=== PATIENT | female | born 1975 | race Caucasian/White ===

== ENCOUNTER → 2016-11-18 | Outpatient (REF) | payer OTHER, MEDICAID ==
[~2016-11-18] MED LIST: /AMLO25TA NG; ASPI81TA4 PO; BIRTH CONTROL PO; BYST5TAB PO; DEBR6.5S AD; LISI40TAB PO; Norvasc OR
== END ==
LOC: M SFHCLERA 10:08
PROVIDERS: ATTEND Nurse Practitioner Family
DX: J02.9 Acute pharyngitis, unspecified (principal)

== ENCOUNTER → 2016-12-25 | Outpatient (CLI) | payer OTHER ==
--- NOTE | 2016-12-26 12:40 | ECGEPIP ---
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 Electronically Signed On 12-26-2016 12:40:07 EDT by Deniz Deras
== END ==
LOC: M EKG 11:05 → M LAB 11:05
PROVIDERS: ATTEND Orthopaedic Surgery
DX: Z01.818 Encounter for other preprocedural examination (principal); I10 Essential (primary) hypertension; R94.31 Abnormal electrocardiogram [ECG] [EKG]

== ENCOUNTER → 2017-01-15 | Outpatient (REF) | payer OTHER, MEDICAID ==
[2017-01-15 11:48] LABS: MEAN CORPUSCULAR HEMOGLOBIN 33.3 pg (27.0-33.0); MEAN CORPUSCULAR HGB CONC 35.5 g/dl (32.0-36.5); MEAN CORPUSCULAR VOLUME 93.7 fl (80.0-96.0); RED CELL DISTRIBUTION WIDTH 12.2 % (11.5-14.5); WHITE BLOOD COUNT 5.9 K/mm3 (4.0-10.0)
[2017-01-15 12:34] LABS: ALBUMIN 3.8 GM/DL (3.2-5.2); ALBUMIN/GLOBULIN RATIO 1.06 (1.00-1.93); ALKALINE PHOSPHATASE 66 U/L (45-117); ALT/SGPT 18 U/L (12-78); ANION GAP 8 MEQ/L (8-16); AST/SGOT 12 U/L (15-37); BILIRUBIN,TOTAL 0.3 MG/DL (0.2-1.0); BLOOD UREA NITROGEN 20 MG/DL (7-18); CALCIUM LEVEL 8.5 MG/DL (8.5-10.1); CARBON DIOXIDE LEVEL 26 MEQ/L (21-32); CHLORIDE LEVEL 103 MEQ/L (98-107); CREATININE FOR GFR 0.69 MG/DL (0.55-1.02); GLOMERULAR FILTRATION RATE > 60.0 (>58); GLUCOSE, FASTING 109 MG/DL (70-105); POTASSIUM SERUM 4.6 MEQ/L (3.5-5.1); SODIUM LEVEL 137 MEQ/L (136-145); TOTAL PROTEIN 7.4 GM/DL (6.4-8.2)
== END ==
LOC: M SFHCLERA 09:10
PROVIDERS: ATTEND Physician Assistant
DX: I10 Essential (primary) hypertension (principal)

== ENCOUNTER → 2017-02-14 | Outpatient (REF) | payer OTHER, MEDICAID | LOC: M SFHCLERA 13:13 | PROVIDERS: ATTEND Family Medicine | DX: Z12.4 Encounter for screening for malignant neoplasm of cervix (principal) ==

== ENCOUNTER → 2018-02-12 | Outpatient (REF) | payer OTHER, MEDICAID ==
[2018-02-12 17:38] LABS: ALBUMIN 3.9 GM/DL (3.2-5.2); ALBUMIN/GLOBULIN RATIO 1.08 (1.00-1.93); ALKALINE PHOSPHATASE 69 U/L (45-117); ALT/SGPT 21 U/L (12-78); ANION GAP 6 MEQ/L (8-16); AST/SGOT 19 U/L (7-37); BILIRUBIN,TOTAL 0.4 MG/DL (0.2-1.0); BLOOD UREA NITROGEN 20 MG/DL (7-18); CALCIUM LEVEL 8.9 MG/DL (8.5-10.1); CARBON DIOXIDE LEVEL 26 MEQ/L (21-32); CHLORIDE LEVEL 108 MEQ/L (98-107); CHOLESTEROL LEVEL 161 MG/DL (<200); CHOLESTEROL RISK RATIO 4.472 (<5); CREATININE FOR GFR 0.79 MG/DL (0.55-1.30); GLOMERULAR FILTRATION RATE > 60.0 (>58); GLUCOSE, FASTING 103 MG/DL (70-100); HDL CHOLESTEROL 36 MG/DL (>40); LDL CHOLESTEROL 76.4 MG/DL (<100); NON-HDL-C 125 MG/DL; POTASSIUM SERUM 4.4 MEQ/L (3.5-5.1); SODIUM LEVEL 140 MEQ/L (136-145); TOTAL PROTEIN 7.5 GM/DL (6.4-8.2); TRIGLYCERIDES LEVEL 243 MG/DL (<150)
[2018-02-12 17:52] LABS: HEMATOCRIT 43.9 % (36.0-47.0); HEMOGLOBIN 15.1 g/dl (12.0-15.5); MEAN CORPUSCULAR HEMOGLOBIN 32.8 pg (27.0-33.0); MEAN CORPUSCULAR HGB CONC 34.4 g/dl (32.0-36.5); MEAN CORPUSCULAR VOLUME 95.2 fl (80.0-96.0); PLATELET COUNT, AUTOMATED 261 10^3/uL (150-450); RED BLOOD COUNT 4.61 10^6/uL (4.00-5.40); RED CELL DISTRIBUTION WIDTH 11.7 % (11.5-14.5); WHITE BLOOD COUNT 6.1 10^3/uL (4.0-10.0)
== END ==
LOC: M SFHCLERA 11:13
DX: E78.2 Mixed hyperlipidemia (principal); I10 Essential (primary) hypertension
CPT/HCPCS: 80053

== ENCOUNTER 2018-05-16 21:58 | Emergency (ER) | payer OTHER, MEDICAID ==
[2018-05-16] MEDS: ONDANSETRON 4MG/2ML VIAL (J2405) IV (22:36)
[2018-05-16] MEDS: NS 1,000 ML IV (22:37)
[2018-05-16] MEDS: MORPHINE 4 MG/ML 1ML VIAL/SYRINGE (J2270) IV (22:37)
[2018-05-16 22:51] LABS: BASO % 0.2 % (0.0-1.0); EOS % 0.3 % (0.0-3.0); HEMATOCRIT 42.8 % (36.0-47.0); HEMOGLOBIN 14.9 g/dl (12.0-15.5); IMMATURE GRANULOCYTE % 0.3 % (0-3.0); LYMPH # 1.7 10^3/uL (1.5-4.5); LYMPH % 13.8 % (24.0-44.0); MEAN CORPUSCULAR HEMOGLOBIN 32.9 pg (27.0-33.0); MEAN CORPUSCULAR HGB CONC 34.8 g/dl (32.0-36.5); MEAN CORPUSCULAR VOLUME 94.5 fl (80.0-96.0); MONO # 0.4 10^3/uL (0.0-0.8); MONO % 3.6 % (0.0-5.0); NEUTROPHILS # 9.8 10^3/uL (1.8-7.7); NEUTROPHILS % 81.8 % (36.0-66.0); PLATELET COUNT, AUTOMATED 281 10^3/uL (150-450); RED BLOOD COUNT 4.53 10^6/uL (4.00-5.40); RED CELL DISTRIBUTION WIDTH 12.1 % (11.5-14.5)
[2018-05-16 23:02] LABS: CONTROL LINE HCG INT CTR LINE PRESENT; HCG, SERUM QUALITATIVE NEGATIVE (NEGATIVE)
[2018-05-16 23:09] LABS: ALBUMIN 3.8 GM/DL (3.2-5.2); ALBUMIN/GLOBULIN RATIO 0.79 (1.00-1.93); ALKALINE PHOSPHATASE 65 U/L (45-117); ALT/SGPT 18 U/L (12-78); AMYLASE 52 U/L (25-115); ANION GAP 9 MEQ/L (8-16); AST/SGOT 16 U/L (7-37); BILIRUBIN,DIRECT < 0.1 MG/DL (0.0-0.2); BILIRUBIN,TOTAL 0.3 MG/DL (0.2-1.0); BLOOD UREA NITROGEN 16 MG/DL (7-18); CALCIUM LEVEL 9.2 MG/DL (8.5-10.1); CARBON DIOXIDE LEVEL 25 MEQ/L (21-32); CHLORIDE LEVEL 106 MEQ/L (98-107); GLOMERULAR FILTRATION RATE 58.3 (>58); GLUCOSE, FASTING 165 MG/DL (70-100); LIPASE 122 U/L (73-393); POTASSIUM SERUM 3.9 MEQ/L (3.5-5.1); SODIUM LEVEL 140 MEQ/L (136-145); TOTAL PROTEIN 8.6 GM/DL (6.4-8.2)
[2018-05-16] MEDS: HYDROMORPHONE HCL 0.5 MG/ 0.5 ML SYRINGE (J1170 PER 1) IV (23:10)
[2018-05-17 00:06] LABS: KETONE, URINE AUTO RFX 1+ mg/dL (NEGATIVE); LEUKOCYTE ESTERASE UR AUTO RFX NEGATIVE (NEGATIVE); NITRITE, URINE AUTO RFX NEGATIVE (NEGATIVE); RBC, URINE AUTO RFX 34 /HPF (0-3); SPECIFIC GRAVITY UR AUTO RFX 1.016 (1.002-1.035); SQUAM EPITHELIAL CELL UR AURFX 1 /HPF (0-6); WBC, URINE AUTO RFX 1 /HPF (0-3)
[2018-05-17] MEDS: NORCO 5/325MG TABLET (BULK FOR ED) PO (00:29)
== END 2018-05-17 00:31 | disposition home or self-care (01) ==
LOC: M ED 05-17 00:31
DX: N20.1 Calculus of ureter (principal); J45.909 Unspecified asthma, uncomplicated; Z79.82 Long term (current) use of aspirin; Z79.899 Other long term (current) drug therapy
CPT/HCPCS: J2270

== ENCOUNTER 2018-05-17 08:30 | Emergency (ER) | payer OTHER ==
[2018-05-17] MEDS: KETOROLAC 30 MG/ML VIAL (J1885) IV (09:36)
[2018-05-17] MEDS: NS 1,000 ML IV (09:36)
[2018-05-17] MEDS: ONDANSETRON 4MG/2ML VIAL (J2405) IV (09:37)
[2018-05-17 10:08] LABS: KETONE, URINE AUTO RFX 1+ mg/dL (NEGATIVE); LEUKOCYTE ESTERASE UR AUTO RFX TRACE (NEGATIVE); MUCUS, URINE RFX SMALL (NEGATIVE); NITRITE, URINE AUTO RFX NEGATIVE (NEGATIVE); RBC, URINE AUTO RFX 5 /HPF (0-3); SPECIFIC GRAVITY UR AUTO RFX 1.024 (1.002-1.035); SQUAM EPITHELIAL CELL UR AURFX 1 /HPF (0-6); WBC, URINE AUTO RFX 20 /HPF (0-3)
[2018-05-17] MEDS: CIPROFLOXACIN 500 MG TAB PO (12:01)
[2018-05-17] MEDS: METOPROLOL SUCC (TopROL XL) 50MG **XL** TAB PO (12:01)
== END 2018-05-17 13:34 | disposition home or self-care (01) ==
LOC: M ED 08:30
DX: N20.1 Calculus of ureter (principal); N39.0 Urinary tract infection, site not specified; I10 Essential (primary) hypertension; J45.909 Unspecified asthma, uncomplicated
CPT/HCPCS: J2405

== ENCOUNTER → 2018-05-22 | Outpatient (CLI) | payer OTHER ==
[2018-05-22 13:22] LABS: HEMATOCRIT 40.2 % (36.0-47.0); HEMOGLOBIN 14.1 g/dl (12.0-15.5); MEAN CORPUSCULAR HEMOGLOBIN 32.5 pg (27.0-33.0); MEAN CORPUSCULAR HGB CONC 35.1 g/dl (32.0-36.5); MEAN CORPUSCULAR VOLUME 92.6 fl (80.0-96.0); PLATELET COUNT, AUTOMATED 283 10^3/uL (150-450); RED BLOOD COUNT 4.34 10^6/uL (4.00-5.40); RED CELL DISTRIBUTION WIDTH 11.6 % (11.5-14.5)
[2018-05-22 13:41] LABS: INR 0.94; PROTHROMBIN TIME 12.7 SECONDS (12.1-14.4)
[2018-05-22 13:42] LABS: PARTIAL THROMBOPLASTIN TIME 28.8 SECONDS (25.4-37.6)
[2018-05-22 14:00] LABS: CONTROL LINE HCG INT CTR LINE PRESENT; HCG, SERUM QUALITATIVE NEGATIVE (NEGATIVE)
[2018-05-22 14:12] LABS: ANION GAP 8 MEQ/L (8-16); BLOOD UREA NITROGEN 21 MG/DL (7-18); CALCIUM LEVEL 8.9 MG/DL (8.5-10.1); CARBON DIOXIDE LEVEL 27 MEQ/L (21-32); CHLORIDE LEVEL 106 MEQ/L (98-107); CREATININE FOR GFR 1.36 MG/DL (0.55-1.30); GLOMERULAR FILTRATION RATE 45.6 (>58); GLUCOSE, FASTING 139 MG/DL (70-100); POTASSIUM SERUM 4.1 MEQ/L (3.5-5.1); SODIUM LEVEL 141 MEQ/L (136-145)
== END ==
LOC: M SMT 11:37
DX: Z01.812 Encounter for preprocedural laboratory examination (principal); N20.0 Calculus of kidney
CPT/HCPCS: 84703

== ENCOUNTER → 2018-06-11 | Outpatient (REF) | payer OTHER, MEDICAID ==
[2018-06-11 16:50] LABS: ANION GAP 9 MEQ/L (8-16); BLOOD UREA NITROGEN 18 MG/DL (7-18); CALCIUM LEVEL 9.5 MG/DL (8.5-10.1); CARBON DIOXIDE LEVEL 25 MEQ/L (21-32); CHLORIDE LEVEL 106 MEQ/L (98-107); CREATININE FOR GFR 0.78 MG/DL (0.55-1.30); GLOMERULAR FILTRATION RATE > 60.0 (>58); GLUCOSE, FASTING 91 MG/DL (70-100); POTASSIUM SERUM 4.7 MEQ/L (3.5-5.1); SODIUM LEVEL 140 MEQ/L (136-145)
== END ==
LOC: M SFHCLERA 10:51
DX: Z01.818 Encounter for other preprocedural examination (principal)

== ENCOUNTER → 2018-06-18 | Outpatient (REF) | payer OTHER, MEDICAID | LOC: M SMT 10:06 | DX: N20.0 Calculus of kidney (principal) ==

== ENCOUNTER → 2018-06-23 | Outpatient (CLI) | payer OTHER | LOC: M SMT 10:46 | DX: Z87.442 Personal history of urinary calculi (principal) | CPT/HCPCS: 74018 ==

== ENCOUNTER → 2018-07-02 | Outpatient (CLI) | payer OTHER | LOC: M RAD 07:56 | DX: N20.0 Calculus of kidney (principal); K44.9 Diaphragmatic hernia without obstruction or gangrene | CPT/HCPCS: 74176 ==

== ENCOUNTER 2018-07-09 06:14 | Day surgery (SDC) | payer OTHER ==
[2018-07-09 07:14] LABS: CONTROL LINE UCG INT CTR LINE PRESENT; URINE PREG TEST NEGATIVE (NEGATIVE)
[2018-07-09] MEDS ORDERED: MIDAZOLAM INJ 2 MG/2 ML VIAL (J2250) As Ordered (07:54)
[2018-07-09] MEDS ORDERED: dexameTHASONE 4 MG/ML 1ML VIAL (J1100) As Ordered (07:54)
[2018-07-09] MEDS ORDERED: PROPOFOL 200 MG/20 ML VIAL As Ordered (07:54)
[2018-07-09] MEDS ORDERED: ONDANSETRON 4MG/2ML VIAL (J2405) As Ordered (07:54)
[2018-07-09] MEDS ORDERED: fentaNYL 100 MCG/2 ML INJECTION (J3010) As Ordered (07:54)
[2018-07-09] MEDS ORDERED: LIDOCAINE 2% INJ 100 MG/5 ML SDV (FOR ANES.) As Ordered (07:54)
== END 2018-07-09 09:50 | disposition home or self-care (01) ==
LOC: M SDC 06:14
DX: N20.0 Calculus of kidney (principal); I10 Essential (primary) hypertension; Z79.899 Other long term (current) drug therapy
CPT/HCPCS: 50590

== ENCOUNTER → 2018-07-27 | Outpatient (CLI) | payer OTHER | LOC: M RAD 08:53 | DX: I70.1 Atherosclerosis of renal artery (principal) | CPT/HCPCS: 76775 ==

== ENCOUNTER → 2018-08-05 | Outpatient (CLI) | payer OTHER | LOC: M SMT 10:28 | DX: N20.0 Calculus of kidney (principal) | CPT/HCPCS: 74018 ==

== ENCOUNTER → 2018-08-18 | Outpatient (REF) | payer OTHER, MEDICAID ==
[2018-08-18 20:17] LABS: HEMATOCRIT 44.2 % (36.0-47.0); HEMOGLOBIN 15.2 g/dl (12.0-15.5); MEAN CORPUSCULAR HEMOGLOBIN 32.2 pg (27.0-33.0); MEAN CORPUSCULAR HGB CONC 34.4 g/dl (32.0-36.5); MEAN CORPUSCULAR VOLUME 93.6 fl (80.0-96.0); PLATELET COUNT, AUTOMATED 264 10^3/uL (150-450); RED BLOOD COUNT 4.72 10^6/uL (4.00-5.40); RED CELL DISTRIBUTION WIDTH 12.1 % (11.5-14.5); WHITE BLOOD COUNT 4.5 10^3/uL (4.0-10.0)
[2018-08-18 20:21] LABS: ANION GAP 9 MEQ/L (8-16); BLOOD UREA NITROGEN 15 MG/DL (7-18); CALCIUM LEVEL 8.6 MG/DL (8.5-10.1); CARBON DIOXIDE LEVEL 25 MEQ/L (21-32); CHLORIDE LEVEL 107 MEQ/L (98-107); CREATININE FOR GFR 0.88 MG/DL (0.55-1.30); GLOMERULAR FILTRATION RATE > 60.0 (>58); GLUCOSE, FASTING 97 MG/DL (70-100); POTASSIUM SERUM 3.7 MEQ/L (3.5-5.1); SODIUM LEVEL 141 MEQ/L (136-145)
[2018-08-18 20:40] LABS: INR 0.97
[2018-08-18 20:41] LABS: PARTIAL THROMBOPLASTIN TIME 29.9 SECONDS (25.4-37.6)
== END ==
LOC: M LABSMT 16:19
DX: N20.0 Calculus of kidney (principal)
CPT/HCPCS: 80048

== ENCOUNTER 2018-08-20 10:26 | Day surgery (SDC) | payer OTHER ==
[~2018-08-20 10:26] MED LIST changes: -/AMLO25TA NG; -ASPI81TA4 PO; -BIRTH CONTROL PO; -BYST5TAB PO; -DEBR6.5S AD; -LISI40TAB PO; +LR 1,000 ML IV; -Norvasc OR
[2018-08-20] MEDS ORDERED: PROPOFOL 200 MG/20 ML VIAL As Ordered (10:48)
[2018-08-20] MEDS ORDERED: MIDAZOLAM INJ 2 MG/2 ML VIAL (J2250) As Ordered (10:49)
[2018-08-20] MEDS ORDERED: fentaNYL 100 MCG/2 ML INJECTION (J3010) As Ordered (10:49)
[2018-08-20 12:12] LABS: CONTROL LINE UCG INT CTR LINE PRESENT; URINE PREG TEST NEGATIVE (NEGATIVE)
== END 2018-08-20 14:25 | disposition home or self-care (01) ==
LOC: M SDC 10:26
DX: N20.0 Calculus of kidney (principal); I10 Essential (primary) hypertension; J45.909 Unspecified asthma, uncomplicated; J30.89 Other allergic rhinitis; Z79.899 Other long term (current) drug therapy
CPT/HCPCS: 50590

== ENCOUNTER → 2018-12-28 | Outpatient (CLI) | payer MEDICAID, OTHER ==
[~2018-12-28] MED LIST changes: +AMLO10TA5 PO; +ASPI-164; +ASPI81TA4 PO; +ASPI81TA85 PO; +BIRTH CONTROL PO; +BYST5TAB PO; +CETI10TA PO; +CIPR-249 PO; +DEBR6.5S AD; +FLOM0.4C39 PO; +KETO10TAB PO; +LISI40TA PO; +LISI40TA52 PO; -LR 1,000 ML IV; +METO1TAB32 PO; +MONT10TA2 PO; +NORV2TAB NG; +Norvasc OR; +PERC5TAB12 PO; +TRIAMCINOLONE; +TRINTAB PO; +TYLE650T35 PO; +ZOFR4TAB14 PO
--- NOTE | 2018-12-28 11:39 | REP ---
Bilateral carotid artery duplex ultrasound: The the patient has a left retinal artery occlusion. Peak flow velocity analysis: RIGHT LEFT ICA Peak flow velocity cm/sec 114.4 122.3 ICA Diastolic flow velocity cm/sec 29.5 27.1 ICA/CCA Ratio 1.2 1.2 ECA Peak flow velocity cm/sec 96.1 115.7 CCA Peak flow velocity cm/sec 97.7 99.8 There is no visible atheromatous plaque on the right or the left. The peak flow velocities are normal bilaterally. There is no stenosis on the right on the left. There is antegrade flow in the vertebral arteries bilaterally. Impression: There is no stenosis on the right on the left. Electronically Signed by Aashish Rushing MD 12/28/2018 11:30 A
== END ==
LOC: M RAD 09:57
PROVIDERS: ATTEND Family Medicine
DX: I10 Essential (primary) hypertension (principal)

== ENCOUNTER 2019-01-08 04:14 | Emergency (ER) | payer OTHER ==
[~2019-01-08] VITALS: Ht 162.6 cm; Wt 81.8 kg
[2019-01-08] MEDS ORDERED: KETOROLAC 30 MG/ML VIAL (J1885) IV ONE (04:45)
[2019-01-08] MEDS ORDERED: NS 1,000 ML IV ONE (04:45)
[2019-01-08] MEDS ORDERED: ONDANSETRON 4MG/2ML VIAL (J2405) IV ONE (04:45)
[2019-01-08 05:03] LABS: BASO # 0.1 10^3/uL (0.0-0.2); BASO % 0.5 % (0.0-1.0); EOS # 0.2 10^3/uL (0.0-0.50); EOS % 1.3 % (0.0-3.0); HEMATOCRIT 41.7 % (36.0-47.0); HEMOGLOBIN 14.8 g/dl (12.0-15.5); LYMPH # 2.6 10^3/uL (1.5-4.5); LYMPH % 22.3 % (24.0-44.0); MEAN CORPUSCULAR HEMOGLOBIN 32.6 pg (27.0-33.0); MEAN CORPUSCULAR HGB CONC 35.5 g/dl (32.0-36.5); MEAN CORPUSCULAR VOLUME 91.9 fl (80.0-96.0); MONO # 0.6 10^3/uL (0.0-0.8); MONO % 5.3 % (0.0-5.0); NEUTROPHILS # 8.2 10^3/uL (1.8-7.7); PLATELET COUNT, AUTOMATED 304 10^3/uL (150-450); RED BLOOD COUNT 4.54 10^6/uL (4.00-5.40); WHITE BLOOD COUNT 11.7 10^3/uL (4.0-10.0)
[2019-01-08 05:20] LABS: HCG, SERUM QUALITATIVE NEGATIVE (NEGATIVE)
[2019-01-08 05:27] LABS: ALBUMIN 4.1 GM/DL (3.2-5.2); ALT/SGPT 25 U/L (12-78); BILIRUBIN,DIRECT < 0.1 MG/DL (0.0-0.2); BILIRUBIN,TOTAL 0.4 MG/DL (0.2-1.0); BLOOD UREA NITROGEN 20 MG/DL (7-18); CALCIUM LEVEL 9.3 MG/DL (8.5-10.1); CARBON DIOXIDE LEVEL 24 MEQ/L (21-32); CHLORIDE LEVEL 107 MEQ/L (98-107); CREATININE FOR GFR 1.13 MG/DL (0.55-1.30); GLOMERULAR FILTRATION RATE 56.2 (>58); GLUCOSE, FASTING 204 MG/DL (70-100); LIPASE 162 U/L (73-393); POTASSIUM SERUM 5.1 MEQ/L (3.5-5.1); SODIUM LEVEL 140 MEQ/L (136-145); TOTAL PROTEIN 7.5 GM/DL (6.4-8.2)
--- NOTE | 2019-01-08 06:43 | REPVR ---
EXAM: CT Abdomen and Pelvis Without Contrast EXAM DATE/TIME: 01/08/19 (4:39am) CLINICAL HISTORY: 43 year old female with right flank pain. History of kidney stones. TECHNIQUE: Imaging protocol: Axial computed tomography images of the abdomen and pelvis without contrast. Coronal and sagittal reformatted images were created and reviewed. Radiation optimization: All CT scans at this facility use at least one of these dose optimization techniques: automated exposure control; mA and/or kV adjustment per patient size (includes targeted exams where dose is matched to clinical indication); or iterative reconstruction. COMPARISON: CT ABDOMEN PELVIS of 09/17/18 FINDINGS: ABDOMEN: Liver: Normal. No solid mass. Gallbladder and bile ducts: Normal. No calcified stones. No ductal dilatation. Pancreas: Normal. No ductal dilatation. Spleen: Normal. No splenomegaly. Adrenals: Normal. No mass. Kidneys and ureters: Moderate right hydronephrosis. Small stone (3 mm size) in the proximal right ureter, located 2 cm below the right UP junction. No distal ureteral stones. Non-obstructing left intrarenal calyceal stones. Stomach and bowel: Normal. No bowel obstruction. No mucosal thickening. Appendix: A normal appendix is visualized. PELVIS: Bladder: Unremarkable as visualized. Reproductive: Unremarkable as visualized. ABDOMEN and PELVIS: Intraperitoneal space: Normal. No free air. No significant fluid collection. Bones/joints: No acute fracture nor dislocation. Soft tissues: Unremarkable. Vasculature: Normal. No abdominal aortic aneurysm. Lymph nodes: Normal. No enlarged lymph nodes. IMPRESSION: Moderate right hydronephrosis. Small stone (3 mm size) in the proximal right ureter, located 2 cm below the right UP junction. No distal ureteral stones. Non-obstructing left intrarenal calyceal stones. Electronically signed by: Leatha Simon On 01/08/2019 06:43:04 AM
[2019-01-08] MEDS ORDERED: MORPHINE 4 MG/ML 1ML VIAL/SYRINGE (J2270) IV PRN (06:45)
[2019-01-08 07:06] LABS: HEMOGLOBIN A1c 5.9 %
[2019-01-08] MEDS ORDERED: PERCOCET 5MG/325MG TAB PO ONE (07:45)
[2019-01-08] MEDS ORDERED: TAMSULOSIN 0.4 MG CAP PO ONE (07:45)
[2019-01-08] MEDS ORDERED: PERC5TAB12 PO (08:45)
[2019-01-08 08:46] VITALS: BP 139/84
== END 2019-01-08 08:50 | disposition home or self-care (01) ==
LOC: M ED 04:14
DX: N21.1 Calculus in urethra (principal); N13.30 Unspecified hydronephrosis; Z87.442 Personal history of urinary calculi; Z79.82 Long term (current) use of aspirin; Z79.899 Other long term (current) drug therapy
CPT/HCPCS: 74176; 80048; 80076; 81001; 83036; 83690; 84703; 85025; 96361; 96374; 96375; 99284; J1885; J2405

== ENCOUNTER → 2019-03-24 | Outpatient (REF) | payer OTHER, MEDICAID ==
[2019-03-24 13:39] LABS: HEMOGLOBIN A1c 5.9 %
[2019-03-24 13:56] LABS: ALBUMIN 3.8 GM/DL (3.2-5.2); ALT/SGPT 13 U/L (12-78); BILIRUBIN,TOTAL 0.5 MG/DL (0.2-1.0); BLOOD UREA NITROGEN 16 MG/DL (7-18); CALCIUM LEVEL 9.4 MG/DL (8.5-10.1); CARBON DIOXIDE LEVEL 26 MEQ/L (21-32); CHLORIDE LEVEL 106 MEQ/L (98-107); CHOLESTEROL LEVEL 179 MG/DL (<200); CHOLESTEROL RISK RATIO 4.162 (<5); CREATININE FOR GFR 0.78 MG/DL (0.55-1.30); GLOMERULAR FILTRATION RATE > 60.0 (>58); GLUCOSE, FASTING 82 MG/DL (70-100); HDL CHOLESTEROL 43 MG/DL (>40); LDL CHOLESTEROL 92 MG/DL (<100); NON-HDL-C 136 MG/DL; POTASSIUM SERUM 4.7 MEQ/L (3.5-5.1); SODIUM LEVEL 139 MEQ/L (136-145); TOTAL PROTEIN 7.6 GM/DL (6.4-8.2); TRIGLYCERIDES LEVEL 221 MG/DL (<150)
== END ==
LOC: M SFHCLERA 11:58
PROVIDERS: ATTEND Family Medicine
DX: I10 Essential (primary) hypertension (principal)

== ENCOUNTER → 2020-05-02 | Outpatient (CLI) | payer OTHER, MEDICAID ==
[~2020-05-02] MED LIST changes: +ACET650T61 PO; -AMLO10TA5 PO; +AMLO1TAB25 PO; -ASPI81TA85 PO; +ASPI81TA86 PO; -MONT10TA2 PO; +MONT10TA4 PO; -TYLE650T35 PO
== END ==
LOC: M RAD 11:15
PROVIDERS: ATTEND Internal Medicine Nephrology
DX: I70.1 Atherosclerosis of renal artery (principal); I15.0 Renovascular hypertension

== ENCOUNTER → 2020-05-15 | Outpatient (REF) | payer OTHER, MEDICAID ==
[2020-05-15 19:25] LABS: BACTERIA, URINE AUTO 1+ (NEGATIVE); CALCIUM OXALATE CRYSTALS SMALL; MUCUS, URINE SMALL (NEGATIVE); RBC, URINE AUTO TNTC /HPF (0-3); SQUAMOUS EPITHELIAL CELL UR AU 5 /HPF (0-6); WBC, URINE AUTO 19 /HPF (0-3)
== END ==
LOC: M LAB REF 16:50
PROVIDERS: ATTEND Internal Medicine Nephrology
DX: R31.9 Hematuria, unspecified (principal)

== ENCOUNTER → 2020-06-07 | Outpatient (CLI) | payer OTHER | LOC: M RAD 13:49 | PROVIDERS: ATTEND Internal Medicine Nephrology | DX: R31.9 Hematuria, unspecified (principal); I10 Essential (primary) hypertension ==

== ENCOUNTER → 2021-03-15 | Outpatient (CLI) | payer OTHER ==
[~2021-03-15] MED LIST changes: -LISI40TA PO; +LISI40TA4 PO; +MONT10TA10 PO; -MONT10TA4 PO
--- NOTE | 2021-03-15 08:31 | REP ---
INDICATION: HEMATURIA, RENOVASCULAR HTN COMPARISON: 07/27/2018 TECHNIQUE: Real time martin scale ultrasound examination using curved array transducer followed by color Doppler evaluation of the renal vasculature. FINDINGS: Right kidney measures 11.8 x 6.5 x 4.8 cm and appears normal. Left kidney measures 12.1 x 6.5 x 5.6 cm and demonstrates mild hydronephrosis along with numerous nonobstructing calculi. Color Doppler evaluation. Peak aortic velocity: 121 centimeters/second RIGHT KIDNEY Renal arterial velocity: 151 centimeters/second Renal-aortic ratio: 1.2 Intrarenal resistive indices: 0.63-0.66 Intrarenal acceleration times: 0.042-0.058 LEFT KIDNEY Renal arterial velocity: 111 centimeters/second Renal-aortic ratio: 0.9 Intrarenal resistive indices: 0.61-0.65 Intrarenal acceleration times: 0.048-0.062 IMPRESSION: 1. Nonobstructing left renal calculi. Normal right kidney. 2. Doppler interegation without sonographic evidence for renal arterial stenosis. <Electronically signed by Charlie Reddy > 03/15/21 [id number]
--- NOTE | 2021-03-15 10:29 | REP ---
INDICATION: HEMATURIA, RENOVASCULAR HTN COMPARISON: None TECHNIQUE: Real time B-mode ultrasound examination using curved array transducer. FINDINGS: Bladder is normal in appearance without wall thickening or mass lesion. Prevoid bladder measures 7.6 x 8.4 x 4.4 cm (183 cc). Postvoid bladder measures 1.8 x 1.9 x 1.1 cm (2.5 cc). Postvoid residual: 1.3% IMPRESSION: 1. Normal bladder ultrasound. <Electronically signed by Charlie Reddy > 03/15/21 1029
== END ==
LOC: M RAD 07:24
PROVIDERS: ATTEND Internal Medicine Nephrology
DX: Z87.442 Personal history of urinary calculi (principal); E31.9 Polyglandular dysfunction, unspecified; N13.39 Other hydronephrosis; I70.1 Atherosclerosis of renal artery; I15.0 Renovascular hypertension

== ENCOUNTER → 2021-04-24 | Outpatient (REF) | payer OTHER | LOC: M LAB REF 12:57 | PROVIDERS: ATTEND Internal Medicine Nephrology | DX: I15.0 Renovascular hypertension (principal); E83.42 Hypomagnesemia ==

== ENCOUNTER → 2021-05-18 | Outpatient (REF) | payer OTHER, MEDICAID ==
[2021-05-18 14:09] LABS: APPEARANCE, URINE CLOUDY (CLEAR); BACTERIA, URINE AUTO 1+ (NEGATIVE); BILIRUBIN, URINE AUTO NEGATIVE (NEGATIVE); BLOOD, URINE BLOOD 3+ (NEGATIVE); COLOR, URINE YELLOW (YELLOW); GLUCOSE, URINE (UA) AUTO NEGATIVE (NEGATIVE); KETONE, URINE AUTO NEGATIVE (NEGATIVE); LEUKOCYTE ESTERASE, URINE AUTO TRACE (NEGATIVE); MUCUS, URINE SMALL (NEGATIVE); NITRITE, URINE AUTO NEGATIVE (NEGATIVE); PROTEIN, URINE AUTO 1+ mg/dL (NEGATIVE); RBC, URINE AUTO 19 /HPF (0-3); SPECIFIC GRAVITY URINE AUTO 1.013 (1.002-1.035); SQUAMOUS EPITHELIAL CELL UR AU 8 /HPF (0-6); UROBILINOGEN, URINE AUTO 0.2 mg/dL (0.0-2.0); WBC, URINE AUTO 8 /HPF (0-3)
== END ==
LOC: M SMT 13:00
PROVIDERS: ATTEND Nurse Practitioner Women's Health
DX: N20.0 Calculus of kidney (principal)

== ENCOUNTER → 2021-06-04 | Outpatient (CLI) | payer MEDICAID, OTHER ==
[~2021-06-04] MED LIST changes: +COLA100C5 PO; -MONT10TA10 PO; +MONT10TA97 PO; +PERCOCET PO; +TRI-TAB16 PO
== END ==
LOC: M PLAIMG 09:55
PROVIDERS: ATTEND Nurse Practitioner Women's Health
DX: N20.0 Calculus of kidney (principal)

== ENCOUNTER 2021-06-29 17:48 | Emergency (ER) | payer OTHER ==
[~2021-06-29] VITALS: Ht 162.6 cm; Wt 81.8 kg
[~2021-06-29 17:48] MED LIST changes: -COLA100C5 PO; +MONT10TA10 PO; -MONT10TA97 PO; -PERCOCET PO; -TRI-TAB16 PO
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
--- OUTSIDE RECORDS SUMMARY | 2021-06-29 20:01 | CCD ---
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 Name Role Phone Robert CARMICHAEL, Heather Saha Unavailable Unavailable Robert CARMICHAEL, Heather Saha Unavailable Unavailable Robert CARMICHAEL, Heather Saha Unavailable Unavailable Robert CARMICHAEL, Heather Saha Unavailable Unavailable Robert CARMICHAEL, Heather Saha Unavailable Unavailable Robert CARMICHAEL, Heather Saha Unavailable Unavailable Robert CARMICHAEL, Heather Saha Unavailable Unavailable Robert CARMICHAEL, Heather Saha Unavailable Unavailable Robert CARMICHAEL, Heather Saha Unavailable Unavailable Robert CARMICHAEL, Heather Saha Unavailable Unavailable Robert CARMICHAEL, Heather Saha Unavailable Unavailable Robert CARMICHAEL, Heather Saha Unavailable Unavailable Robert CARMICHAEL, Heather Saha Unavailable Unavailable Robert CARMICHAEL, Heather Bravo Unavailable Re-disclosure Warning The records that you are about to access may contain information from federally-assisted alcohol or drug abuse programs. If such information is present, then the following federally mandated warning applies: This information has been disclosed to you from records protected by federal confidentiality rules (42 CFR part 2). The federal rules prohibit you from making any further disclosure of this information unless further disclosure is expressly permitted by the written consent of the person to whom it pertains or as otherwise permitted by 42 CFR part 2. A general authorization for the release of medical or other information is NOT sufficient for this purpose. The Federal rules restrict any use of the information to criminally investigate or prosecute any alcohol or drug abuse patient.The records that you are about to access may contain highly sensitive health information, the redisclosure of which is protected by Article 27-F of the [facility] Public Health law. If you continue you may have access to information: Regarding HIV / AIDS; Provided by facilities licensed or operated by the [facility] Office of Mental Health; or Provided by the [facility] Office for People With Developmental Disabilities. If such information is present, then the following [facility] mandated warning applies: This information has been disclosed to you from confidential records which are protected by state law. State law prohibits you from making any further disclosure of this information without the specific written consent of the person to whom it pertains, or as otherwise permitted by law. Any unauthorized further disclosure in violation of state law may result in a fine or skilled nursing sentence or both. A general authorization for the release of medical or other information is NOT sufficient authorization for further disc losure. Family History Family Member Name Family Member Gender Family Member Status Date o f Status Description Data Source(s) Unknown Female Problem [facility] ([facility]) Unknown Female Problem [facility] ([facility]) Encounters Encounter Providers Location Date Indications Data Source(s ) [place] [address] [address] 06/04/2021 12:00:00 AM EDT eCW1 (Formerly [facility], [facility]) Outpatient Attender: Heather Jones MD 05/29/2021 05:12:00 PM EDT [facility] ([facility]) Outpatient Attender: Heather Jones MD 05/29/2021 05:00:00 PM EDT [facility] ([facility]) [place] [address] [address] 05/18/2021 12:00:00 AM EDT eCW1 ([facility]) [place] [address] [address] 05/15/2021 12:00:00 AM EDT eCW1 [facility] [place] [address] [address] 05/01/2021 12:00:00 AM EDT eCW1 ([facility]) [place] [address] [address] 04/24/2021 12:00:00 AM EDT eCW1 ([facility]) [place] [address] [address] 04/09/2021 12:00:00 AM EDT eCW1 ([facility]) [place] [address] [address] 03/23/2021 12:00:00 AM EDT eCW1 ([facility]) Outpatient 01/31/2021 01:27:47 PM EDT [facility] ([facility]) Outpatient 01/24/2021 09:48:00 AM EDT [facility] ([facility]) [place] [address] [address] 01/04/2021 12:00:00 AM EDT eCW1 ([facility]) [place] [address] [address] 12/18/2020 12:00:00 AM EDT eCW1 ([facility]) [place] [address] [address] 11/22/2020 12:00:00 AM EST eCW1 ([facility]) [place] [address] [facility] [place] [address] 07/12/2020 12:00:00 AM EDT eCW1 ([facility], [facility]) [facility] [address], [facility] [address] 05/02/2020 12:00:00 AM EDT eCW1 (Formerly [facility], [facility]) Medications Medication Brand Name Start Date Product Form Dose Route Admi nistrative Instructions Pharmacy Instructions Status Indications Reaction Description Data Source(s) 0.3-0.1 % 06/13/2021 12:00:00 AM EDT ointment 3 APPLY A THIN BEAD TO BOTH UPPER EYELIDS TWICE A DAY APPLY A THIN BEAD TO BOTH UPPER EYELIDS TWICE A DAY SOLD: 06/14/2021 [facility] montelukast 10 MG Oral Tablet MONTELUKAST SODIUM 06/07/2021 12:0 0:00 AM EDT tablet 90 TAKE ONE TABLET BY MOUTH EVERY E VENING TAKE ONE TABLET BY MOUTH EVERY EVENING SOLD: 06/14/2021 [facility] Flonase Allergy Relief 50 mcg/actuation nasal spray,padron spension fluticasone propionate 0.05 MG/ACTUAT Metered Dose Nasal [place] 05/29/2021 12:00:00 AM EDT 2.00 {spray} NASAL active flutica sone propionate 0.05 MG/ACTUAT Metered Dose Nasal [place] [Flonase] [facility] ([facility]) Zithromax Z-Nic 250 mg tablet Azithromycin 250 MG Oral Table t 05/29/2021 12:00:00 AM EDT TABLET 2.00 {tablet} ORAL completed Z-NIC [facility] ([facility]) 0.4 mg 05/18/2021 12:00:00 AM EDT capsule 30 TAKE 1 CAPSULE BY MOUTH ONCE A DAY TAKE 1 CAPSULE BY MOUTH ONCE A DAY SOLD: 05/18/2021 [facility] Tamsulosin hydrochloride 0.4 MG Oral Capsule [Flomax] Flomax 0.4 MG Flomax 0.4 MG 05/18/2021 12:00:00 AM EDT 1.0 {capsule} active Flomax 0.4 MG eC1 ([facility]) 5-325 mg 05/18/2021 12:00:00 AM EDT tablet 20 TAKE ONE TABLET BY MOUTH EVERY 6 HOURS NEEDED MAXIMUM DAILY DOSE = 4 TABLETS TAKE ONE TABLET BY MOUTH EVERY 6 HOURS NEEDED MAXIMUM DAILY DOSE = 4 TABLETS SOLD: 05/18/2021 [facility] Acetaminophen 325 MG / Oxycodone Hydroch loride 5 MG Oral Tablet [Percocet] Percocet 5-325 MG Percocet 5-325 MG 05/18/2021 12:00:00 AM EDT 1 .0 {tablet_as_needed} active Percocet 5-32 5 MG eCW1 ([facility]) Acetaminophen 325 MG / Oxycodone Hydroch loride 5 MG Oral Tablet [Percocet] Percocet 5-325 MG Percocet 5-325 MG 05/18/2021 12:00:00 AM EDT 1 .0 {tablet_as_needed} active Percocet 5-32 5 MG eCW1 ([facility]) 10 mg 05/18/2021 12:00:00 AM EDT tablet 20 TAKE ONE TABLET BY MOUTH EVERY 6 HOURS NEEDED WITH FOOD OR MILK TAKE ONE TABLET BY MOUTH EVERY 6 HOURS A S NEEDED WITH FOOD OR MILK SOLD: 05/18/2021 [facility] Tamsulosin hydrochloride 0.4 MG Oral Capsule [Flomax] Flomax 0.4 MG Flomax 0.4 MG 05/18/2021 12:00:00 AM EDT 1.0 {capsule} active Flomax 0.4 MG eCW1 ([facility]) Ketorolac Tromethamine 10 MG Oral Tablet Ketorolac Trometham ine 10 MG 05/18/2021 12:00:00 AM EDT active Ketorol ac Tromethamine 10 MG eCW1 ([facility]) Ketorolac Tromethamine 10 MG Oral Tablet Ketorolac Trometham ine 10 MG 05/18/2021 12:00:00 AM EDT active Ketorol ac Tromethamine 10 MG eCW1 ([facility]) 25 mg 03/23/2021 12:00:00 AM EDT tablet extended release 24 hr 90 TAKE 1 TABLET BY MOUTH ONCE A DAY TAKE 1 TABLET BY MOUTH ONCE A DAY SOLD: 03/28/2021 [facility] 10 mg 03/23/2021 12:00:00 AM EDT tablet 90 TAKE 1 TABLET BY MOUTH ONCE A DAY TAKE 1 TABLET BY MOUTH ONCE A DAY SOLD: 03/28/2021 [facility] 40 mg 03/23/2021 12:00:00 AM EDT tablet 90 TAKE 1 TABLET BY MOUTH ONCE A DAY TAKE 1 TABLET BY MOUTH ONCE A DAY SOLD: 03/28/2021 [facility] Dexamethasone 0.001 MG/MG / Neomycin 0.0 035 MG/MG / Polymyxin B 10 UNT/MG Ophthalmic Ointment 3.5 mg/g-10,000 unit/g-0.1 % NEOMYCIN/POLYMYXIN B/DEXAMETHA 03/08/2021 12:00:00 AM EDT ointment 3 APPLY A 1/4 INCH RIBBON TO BOTH LOWER EYELIDS FOUR TIMES A DAY FOR 10 DAYS APPLY A 1/4 INCH RIBBON TO BOTH LOWER EYELIDS FOUR TIMES A DAY FOR 10 DAYS SOLD: 03/08/2021 [facility] 0.18/0.215/0.25 mg-35 mcg (28) 01/04/2021 12:00:00 AM EDT ta blet 28 TAKE 1 TABLET BY MOUTH ONCE A DAY TAKE 1 TABLET BY MOUTH ONCE A DAY SOLD: 02/09/2021 [facility] 0.18/0.215/0.25 mg-35 mcg (28) 01/04/2021 12:00:00 AM EDT ta blet 28 TAKE 1 TABLET BY MOUTH ONCE A DAY TAKE 1 TABLET BY MOUTH ONCE A DAY SOLD: 04/09/2021 [facility] 0.18/0.215/0.25 mg-35 mcg (28) 01/04/2021 12:00:00 AM EDT ta blet 28 TAKE 1 TABLET BY MOUTH ONCE A DAY TAKE 1 TABLET BY MOUTH ONCE A DAY SOLD: 06/14/2021 [facility] 0.18/0.215/0.25 mg-35 mcg (28) 01/04/2021 12:00:00 AM EDT ta blet 28 TAKE 1 TABLET BY MOUTH ONCE A DAY TAKE 1 TABLET BY MOUTH ONCE A DAY SOLD: 01/08/2021 [facility] 0.18/0.215/0.25 mg-35 mcg (28) 01/04/2021 12:00:00 AM EDT ta blet 28 TAKE 1 TABLET BY MOUTH ONCE A DAY TAKE 1 TABLET BY MOUTH ONCE A DAY SOLD: 03/08/2021 [facility] 0.18/0.215/0.25 mg-35 mcg (28) 01/04/2021 12:00:00 AM EDT ta blet 28 TAKE 1 TABLET BY MOUTH ONCE A DAY TAKE 1 TABLET BY MOUTH ONCE A DAY SOLD: 05/11/2021 [facility] Tri-Lo-Chelle 28 Day Pack 0.18/0.215/0.25 mg-25 mcg NORG ESTIMATE-ETHINYL ESTRADIOL 07/13/2020 12:00:00 AM EDT tablet 28 TAKE ONE TABLET BY MOUTH EVERY DAY TAKE ONE TABLET BY MOUTH EVERY DAY SOLD: 11/03/2020 [facility] Tri-Lo-Chelle 28 Day Pack 0.18/0.215/0.25 mg-25 mcg NORG ESTIMATE-ETHINYL ESTRADIOL 07/13/2020 12:00:00 AM EDT tablet 28 TAKE ONE TABLET BY MOUTH EVERY DAY TAKE ONE TABLET BY MOUTH EVERY DAY SOLD: 07/15/2020 [facility] Tri-Lo-Chelle 28 Day Pack 0.18/0.215/0.25 mg-25 mcg NORG ESTIMATE-ETHINYL ESTRADIOL 07/13/2020 12:00:00 AM EDT tablet 28 TAKE ONE TABLET BY MOUTH EVERY DAY TAKE ONE TABLET BY MOUTH EVERY DAY SOLD: 09/11/2020 [facility] Tri-[place]helle 28 Day Pack 0.18/0.215/0.25 mg-25 mcg NORG ESTIMATE-ETHINYL ESTRADIOL 07/13/2020 12:00:00 AM EDT tablet 28 TAKE ONE TABLET BY MOUTH EVERY DAY TAKE ONE TABLET BY MOUTH EVERY DAY SOLD: 10/08/2020 [facility] Tri-[place]le 28 Day Pack 0.18/0.215/0.25 mg-25 mcg NORG ESTIMATE-ETHINYL ESTRADIOL 07/13/2020 12:00:00 AM EDT tablet 28 TAKE ONE TABLET BY MOUTH EVERY DAY TAKE ONE TABLET BY MOUTH EVERY DAY SOLD: 12/06/2020 [facility] Tri-[place] 28 Day Pack 0.18/0.215/0.25 mg-25 mcg NORG ESTIMATE-ETHINYL ESTRADIOL 07/13/2020 12:00:00 AM EDT tablet 28 TAKE ONE TABLET BY MOUTH EVERY DAY TAKE ONE TABLET BY MOUTH EVERY DAY SOLD: 08/16/2020 [facility] 40 mg 07/12/2020 12:00:00 AM EDT tablet 30 TAKE ONE TABLET BY MOUTH EVERY DAY TAKE ONE TABLET BY MOUTH EVERY DAY SOLD: 01/29/2021 [facility] 81 mg 07/12/2020 12:00:00 AM EDT tablet,delayed release (DR/EC) 30 TAKE ONE TABLET BY MOUTH EVERY DAY TAKE ONE TABLET BY MOUTH EVERY DAY SOLD: 03/08/2021 [facility] 10 mg 07/12/2020 12:00:00 AM EDT tablet 30 TAKE ONE TABLET BY MOUTH EVERY DAY NEEDED TAKE ONE TABLET BY MOUTH EVERY DAY NEEDED SOLD: 07/15/2020 [facility] 40 mg 07/12/2020 12:00:00 AM EDT tablet 30 TAKE ONE TABLET BY MOUTH EVERY DAY TAKE ONE TABLET BY MOUTH EVERY DAY SOLD: 11/20/2020 [facility] 10 mg 07/12/2020 12:00:00 AM EDT tablet 30 TAKE ONE TABLET BY MOUTH EVERY DAY NEEDED TAKE ONE TABLET BY MOUTH EVERY DAY NEEDED SOLD: 11/20/2020 [facility] 81 mg 07/12/2020 12:00:00 AM EDT tablet,delayed release (DR/EC) 30 TAKE ONE TABLET BY MOUTH EVERY DAY TAKE ONE TABLET BY MOUTH EVERY DAY SOLD: 07/15/2020 [facility] montelukast 10 MG Oral Tablet MONTELUKAST SODIUM 07/12/2020 12:0 0:00 AM EDT tablet 30 TAKE ONE TABLET BY MOUTH EVERY E VENING TAKE ONE TABLET BY MOUTH EVERY EVENING SOLD: 03/08/2021 [facility] montelukast 10 MG Oral Tablet MONTELUKAST SODIUM 07/12/2020 12:0 0:00 AM EDT tablet 90 TAKE ONE TABLET BY MOUTH EVERY E VENING TAKE ONE TABLET BY MOUTH EVERY EVENING SOLD: 07/15/2020 [facility] 10 mg 07/12/2020 12:00:00 AM EDT tablet 30 TAKE ONE TABLET BY MOUTH EVERY DAY NEEDED TAKE ONE TABLET BY MOUTH EVERY DAY NEEDED SOLD: 05/11/2021 [facility] 25 mg 07/12/2020 12:00:00 AM EDT tablet extended release 24 hr 30 TAKE ONE TABLET BY MOUTH EVERY DAY TAKE ONE TABLET BY MOUTH EVERY DAY SOLD: 12/18/2020 [facility] 10 mg 07/12/2020 12:00:00 AM EDT tablet 30 TAKE ONE TABLET BY MOUTH EVERY DAY NEEDED TAKE ONE TABLET BY MOUTH EVERY DAY NEEDED SOLD: 01/29/2021 [facility] 10 mg 07/12/2020 12:00:00 AM EDT tablet 30 TAKE ONE TABLET BY MOUTH EVERY DAY TAKE ONE TABLET BY MOUTH EVERY DAY SOLD: 01/29/2021 [facility] 81 mg 07/12/2020 12:00:00 AM EDT tablet,delayed release (DR/EC) 30 TAKE ONE TABLET BY MOUTH EVERY DAY TAKE ONE TABLET BY MOUTH EVERY DAY SOLD: 12/18/2020 [facility] montelukast 10 MG Oral Tablet MONTELUKAST SODIUM 07/12/2020 12:0 0:00 AM EDT tablet 30 TAKE ONE TABLET BY MOUTH EVERY E VENING TAKE ONE TABLET BY MOUTH EVERY EVENING SOLD: 11/20/2020 [facility] montelukast 10 MG Oral Tablet MONTELUKAST SODIUM 07/12/2020 12:0 0:00 AM EDT tablet 30 TAKE ONE TABLET BY MOUTH EVERY E VENING TAKE ONE TABLET BY MOUTH EVERY EVENING SOLD: 05/11/2021 [facility] montelukast 10 MG Oral Tablet MONTELUKAST SODIUM 07/12/2020 12:0 0:00 AM EDT tablet 30 TAKE ONE TABLET BY MOUTH EVERY E VENING TAKE ONE TABLET BY MOUTH EVERY EVENING SOLD: 01/29/2021 [facility] 40 mg 07/12/2020 12:00:00 AM EDT tablet 90 TAKE ONE TABLET BY MOUTH EVERY DAY TAKE ONE TABLET BY MOUTH EVERY DAY SOLD: 07/15/2020 [facility] 10 mg 07/12/2020 12:00:00 AM EDT tablet 30 TAKE ONE TABLET BY MOUTH EVERY DAY NEEDED TAKE ONE TABLET BY MOUTH EVERY DAY NEEDED SOLD: 03/08/2021 [facility] 25 mg 07/12/2020 12:00:00 AM EDT tablet extended release 24 hr 90 TAKE ONE TABLET BY MOUTH EVERY DAY TAKE ONE TABLET BY MOUTH EVERY DAY SOLD: 07/15/2020 [facility] 10 mg 07/12/2020 12:00:00 AM EDT tablet 90 TAKE ONE TABLET BY MOUTH EVERY DAY TAKE ONE TABLET BY MOUTH EVERY DAY SOLD: 07/15/2020 [facility] 40 mg 07/12/2020 12:00:00 AM EDT tablet 30 TAKE ONE TABLET BY MOUTH EVERY DAY TAKE ONE TABLET BY MOUTH EVERY DAY SOLD: 12/18/2020 [facility] 10 mg 07/12/2020 12:00:00 AM EDT tablet 30 TAKE ONE TABLET BY MOUTH EVERY DAY NEEDED TAKE ONE TABLET BY MOUTH EVERY DAY NEEDED SOLD: 08/16/2020 [facility] 81 mg 07/12/2020 12:00:00 AM EDT tablet,delayed release (DR/EC) 30 TAKE ONE TABLET BY MOUTH EVERY DAY TAKE ONE TABLET BY MOUTH EVERY DAY SOLD: 08/16/2020 [facility] 10 mg 07/12/2020 12:00:00 AM EDT tablet 30 TAKE ONE TABLET BY MOUTH EVERY DAY NEEDED TAKE ONE TABLET BY MOUTH EVERY DAY NEEDED SOLD: 04/09/2021 [facility] 25 mg 07/12/2020 12:00:00 AM EDT tablet extended release 24 hr 30 TAKE ONE TABLET BY MOUTH EVERY DAY TAKE ONE TABLET BY MOUTH EVERY DAY SOLD: 01/29/2021 [facility] 10 mg 07/12/2020 12:00:00 AM EDT tablet 30 TAKE ONE TABLET BY MOUTH EVERY DAY TAKE ONE TABLET BY MOUTH EVERY DAY SOLD: 11/20/2020 [facility] 10 mg 07/12/2020 12:00:00 AM EDT tablet 30 TAKE ONE TABLET BY MOUTH EVERY DAY NEEDED TAKE ONE TABLET BY MOUTH EVERY DAY NEEDED SOLD: 06/14/2021 [facility] 25 mg 07/12/2020 12:00:00 AM EDT tablet extended release 24 hr 30 TAKE ONE TABLET BY MOUTH EVERY DAY TAKE ONE TABLET BY MOUTH EVERY DAY SOLD: 11/20/2020 [facility] 10 mg 07/12/2020 12:00:00 AM EDT tablet 30 TAKE ONE TABLET BY MOUTH EVERY DAY NEEDED TAKE ONE TABLET BY MOUTH EVERY DAY NEEDED SOLD: 12/18/2020 [facility] 81 mg 07/12/2020 12:00:00 AM EDT tablet,delayed release (DR/EC) 30 TAKE ONE TABLET BY MOUTH EVERY DAY TAKE ONE TABLET BY MOUTH EVERY DAY SOLD: 01/29/2021 [facility] 10 mg 07/12/2020 12:00:00 AM EDT tablet 30 TAKE ONE TABLET BY MOUTH EVERY DAY TAKE ONE TABLET BY MOUTH EVERY DAY SOLD: 12/18/2020 [facility] 81 mg 07/12/2020 12:00:00 AM EDT tablet,delayed release (DR/EC) 30 TAKE ONE TABLET BY MOUTH EVERY DAY TAKE ONE TABLET BY MOUTH EVERY DAY SOLD: 11/20/2020 [facility] montelukast 10 MG Oral Tablet MONTELUKAST SODIUM 07/12/2020 12:0 0:00 AM EDT tablet 30 TAKE ONE TABLET BY MOUTH EVERY E VENING TAKE ONE TABLET BY MOUTH EVERY EVENING SOLD: 12/18/2020 [facility] montelukast 10 MG Oral Tablet MONTELUKAST SODIUM 07/12/2020 12:0 0:00 AM EDT tablet 30 TAKE ONE TABLET BY MOUTH EVERY E VENING TAKE ONE TABLET BY MOUTH EVERY EVENING SOLD: 04/09/2021 [facility] 0.18/0.215/0.25 mg-35 mcg (28) 03/01/2020 12:00:00 AM EDT ta blet 28 TAKE 1 TABLET BY MOUTH ONCE A DAY TAKE 1 TABLET BY MOUTH ONCE A DAY SOLD: 06/19/2020 [facility] 0.18/0.215/0.25 mg-35 mcg (28) 03/01/2020 12:00:00 AM EDT ta blet 28 TAKE 1 TABLET BY MOUTH ONCE A DAY TAKE 1 TABLET BY MOUTH ONCE A DAY SOLD: 05/22/2020 [facility] Insurance Providers Payer name Policy type / Coverage type Policy ID Covered constitution party ID Covered constitution party's relationship to devine Policy [employer] Plan Information [employer] [id number] Self [id number] [employer] [id number] Self [id number] [employer] Compensation [id number] Self [employer] Compensation [id number] Self [id number] [employer] Workers Compensation [id number] Self [id number] [facility] Commercial insurance [id number] self [id number] [facility] Commercial [id number] Self [id number] [facility] [employer] Commercial [id number] Self [id number] [facility] [employer] Commercial [id number] Self [id number] [facility] Commercial [id number] Self [id number] [facility] Commercial [id number] Self [facility] MCDO [id number] SP [id number] [facility] [employer] MCDO [id number] SP [id number] ANSI-Medicaid [id number] ANSI-Medicaid [id number] [facility] O [id number] S [id number] ANSI-Medicaid [id number] ANSI-Medicaid [id number] ANSI-Medicaid [id number] ANSI-Medicaid [id number] ANSI-Medicaid [id number] ANSI-Medicaid [id number] ANSI-Medicaid [id number] ANSI-Medicaid [id number] ANSI-Medicaid [id number] ANSI-Medicaid [id number] ANSI-Medicaid [id number] ANSI-Medicaid [id number] ANSI-Medicaid [id number] ANSI-Medicaid [id number] ANSI-Medicaid [id number] ANSI-Medicaid [id number] ANSI-Medicaid [id number] ANSI-Medicaid [id number] ANSI-Medicaid [id number] ANSI-Medicaid [id number] ANSI-Medicaid [id number] ANSI-Medicaid [id number] ANSI-Medicaid [id number] ANSI-Medicaid [id number] ANSI-Medicaid [id number] ANSI-Medicaid [id number] ANSI-Medicaid [id number] ANSI-Medicaid [id number] ANSI-Medicaid [id number] ANSI-Medicaid [id number] ANSI-Medicaid [id number] ANSI-Medicaid [id number] ANSI-Medicaid [id number] ANSI-Medicaid [id number] BLUE CROSS [place] PLAN [id number] SP [id number] [facility] PLAN [facility] [id number] BC BS Blue Card Program - [place] BL [id number] S ELF [id number] [place] [employer] Blue [employer]/Blue Shield [id number] joel f [id number] [employer] [facility]AN [facility] [place] [id number] SP [id number] [place] [id number] SP [id number] [employer] COMMUNITY PLAN [facility] [place] [id number] SP [id number] SP [id number] ANSI-Medicaid [id number] ANSI-Medicaid [id number] MEDICAID [id number] SP [id number] ANSI-Medicaid [id number] ANSI-Medicaid [id number] HMO BLUE [id number] SP [id number] Problems, Conditions, and Diagnoses Code Display Name Description Problem Type Effective Dates Data Source(s) N20.0 Kidney stone Kidney stone Problem 05/18/2021 12:00:00 A M EDT eCW1 ([facility]) H05.223 [id number] Edema of bilateral orbit Problem 05/01/2021 12:00:00 AM EDT eCW1 ([facility]) N20.0 73075785 Renal calculi Problem 04/24/2021 12:00:00 AM EDT eCW1 ([facility]) Surgeries/Procedures Procedure Description Date Indications Data Source(s) OFFICE/OUTPATIENT VISIT, EST 05/29/2021 12:00:00 AM EDT - 05/29/2021 12:00:00 AM EDT NEXTGEN ([facility]) Results ID Date Data Source [id number] 08/03/2020 07:12:00 PM EST [facility] Name Value Range Interpretation Code Description Data Nisha rce(s) Supporting Document(s) 2019 Novel Coronavirus RNA Interpretatio n Unspecified Specimen Qualitative TESSA Probe Detection [facility] This lab was ordered by [facility]- and reported by [facility]. ID Date Data Source [id number] 08/03/2020 12:00:00 AM EST [facility] Name Value Range Interpretation Code Description Data Nisha rce(s) Supporting Document(s) SARS CORONAVIRUS+SARS CORONAVIRUS 2 AG [ PRESENCE] IN RESPIRATORY SPECIMEN BY RAPID IMMUNOASSAY [facility] This lab was ordered by [facility] [facility] and reported by PM [facility]. ID Date Data Source [id number] 07/13/2020 12:48:00 PM EDT [facility] Name Value Range Interpretation Code Description Data Nisha rce(s) Supporting Document(s) SARS coronavirus 2 RNA [Presence] in Res piratory specimen by TESSA with probe detection [facility] This lab was ordered by [facility] and reported by [facility]. Procedure Social History Code Duration Value Status Description Data Source(s ) ASSERTION 05/29/2021 12:00:00 AM EDT completed NEXTGEN ([facility]) Smoking 05/18/2021 12:00:00 AM EDT Never Smoker completed Never S moker eCW1 ([facility]) Smoking 05/18/2021 12:00:00 AM EDT Never Smoker completed Never S moker eCW1 ([facility]) Smoking 05/15/2021 12:00:00 AM EDT Never Smoker completed Never S moker eCW1 ([facility]) Smoking 05/01/2021 12:00:00 AM EDT Never Smoker completed Never S moker eCW1 ([facility]) Smoking 12/18/2020 12:00:00 AM EDT Never Smoker completed Never S moker eCW1 ([facility]) Smoking 12/18/2020 12:00:00 AM EDT Never Smoker completed Never S moker eCW1 ([facility]) Smoking 12/18/2020 12:00:00 AM EDT Never Smoker completed Never S moker eCW1 ([facility]) Smoking 12/18/2020 12:00:00 AM EDT Never Smoker completed Never S moker eCW1 ([facility]) Smoking 12/18/2020 12:00:00 AM EDT Never Smoker completed Never S moker eCW1 ([facility]) Vital Signs ID Date Data Source UNK Name Value Range Interpretation Code Description Data Source(s) Body weight 182 [lb_av] 182 [lb_av] eCW1 ([facility]) Body weight 82.55 kg 82.55 kg eCW1 ([facility]) Body height 63.5 [in_i] 63.5 [in_i] eCW1 ([facility]) Body mass index (BMI) [Ratio] 31.73 kg/m2 31.73 kg/m2 eCW1 ([facility]) Heart rate 84 /min 84 /min eCW1 ([facility]) Respiratory rate 18 /min 18 /min eCW1 ([facility] 1928[facility]1983) Body temperature 97.2 [degF] 97.2 [degF] eCW1 ( [facility]) Systolic blood pressure 128 mm[Hg] 128 mm[Hg] e CW1 ([facility]) Diastolic blood pressure 84 mm[Hg] 84 mm[Hg] eCW1 ([facility]) Body weight 181.6 [lb_av] 181.6 [lb_av] eCW1 ([facility]) Body weight 82.37 kg 82.37 kg eCW1 ([facility]) Body mass index (BMI) [Ratio] 31.66 kg/m2 31.66 kg/m2 W1 ([facility]) Body height 63.5 [in_i] 63.5 [in_i] eCW1 ([facility]) Heart rate 80 /min 80 /min eCW1 ([facility]) Respiratory rate 18 /min 18 /min eCW1 ([facility], 1928–1983) Body temperature 97.1 [degF] 97.1 [degF] eCW1 ( [facility]) Systolic blood pressure 146 mm[Hg] 146 mm[Hg] e CW1 ([facility]) Diastolic blood pressure 81 mm[Hg] 81 mm[Hg] eCW1 ([facility]) Body weight 185.4 [lb_av] 185.4 [lb_av] eCW1 ([facility]) Body mass index (BMI) [Ratio] 32.32 kg/m2 32.32 kg/m2 eCW1 ([facility]) Heart rate 95 /min 95 /min eCW1 ([facility]) Respiratory rate 19 /min 19 /min eCW1 ([facility], 1928[facility]) Body temperature 98.6 [degF] 98.6 [degF] eCW1 ( [facility]) Body weight 84.1 kg 84.1 kg eCW1 ([facility]) Body height 63.5 [in_i] 63.5 [in_i] eCW1 ([facility]) Systolic blood pressure 168 mm[Hg] 168 mm[Hg] e CW1 ([facility]) Diastolic blood pressure 108 mm[Hg] 108 mm[Hg] eCW1 ([facility]) Body weight 189.4 [lb_av] 189.4 [lb_av] eCW1 ([facility]) Body height 63.5 [in_i] 63.5 [in_i] eCW1 ([facility]) Body mass index (BMI) [Ratio] 33.02 kg/m2 33.02 kg/m2 eCW1 ([facility]) Heart rate 93 /min 93 /min eCW1 ([facility]) Respiratory rate 17 /min 17 /min eCW1 ([facility], 1928–[facility]) Body temperature 97.9 [degF] 97.9 [degF] eCW1 ( [facility]) Systolic blood pressure 160 mm[Hg] 160 mm[Hg] e CW1 ([facility]) Diastolic blood pressure 104 mm[Hg] 104 mm[Hg] eCW1 ([facility]) Patient Treatment Plan of Care Planned Activity Planned Date Details Description Data Source (s) Flonase Allergy Relief 50 mcg/actuation nasal spray,padron spension 05/29/2021 12:00:00 AM EDT NEXTGEN ([facility]) Zithromax Z-Nic 250 mg tablet 05/29/2021 12:00:00 AM EDT NEXTGEN ([facility]) Ketorolac Tromethamine 10 MG Oral Tablet 05/18/2021 12:00:00 AM EDT eCW1 ([facility]) Tamsulosin hydrochloride 0.4 MG Oral Capsule [Flomax] 05/18/2021 12:00:00 AM EDT eCW1 ([facility]) Acetaminophen 325 MG / Oxycodone Hydrochloride 5 MG Or al Tablet [Percocet] 05/18/2021 12:00:00 AM EDT eCW1 ([facility]) Ketorolac Tromethamine 10 MG Oral Tablet 05/18/2021 12:00:00 AM EDT eCW1 ([facility]) Acetaminophen 325 MG / Oxycodone Hydrochloride 5 MG Or al Tablet [Percocet] 05/18/2021 12:00:00 AM EDT eCW1 ([facility]) Tamsulosin hydrochloride 0.4 MG Oral Capsule [Flomax] 05/18/2021 12:00:00 AM EDT eCW1 ([facility])
--- OUTSIDE RECORDS SUMMARY | 2021-06-29 20:01 | CCD ---
Author Author [facility] Organization [facility] Address Unknown Phone Unavailable Care Team Providers Care Study Lead Name Role Phone Karina Foster Unavailable PROBLEMS Type Condition ICD9-CM Code IJS26-UE Code Onset Dates Condition S tatus W/U Status Risk SNOMED Code Notes Problem Essential hypertension I10 Active confirmed 42313869 Problem Mixed hyperlipidemia E78.2 Active confirmed 078960481 Problem Abnormal echocardiogram R93.1 Active confirmed 468130030 in 2013, small PFO versus secundum atrial septal defect Problem Allergic asthma, mild intermittent, uncomplicated J45.20 Active confirmed 899492070 Problem Seasonal allergic rhinitis due to other allergic trigger J30.89 Active confirmed 499468989 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 Active confirmed 80596144 Problem Renal stones N20.0 Active confirmed 9910755 7 Problem Kidney calculus N20.0 Active confirmed 9557 0007 Problem 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 Active confirmed 596571081603339 Problem PFO (patent foramen ovale) Q21.1 Active confirmed 332872254 Problem Influenza vaccination declined Z28.21 Active confir med 379007269 Problem Kidney stone N20.0 Active confirmed 8598142 7 Problem Calculus of kidney N20.0 Active confirmed 9 1734096 Problem 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 Active confirmed 458286322582057 Problem Renal artery stenosis I70.1 Active confirmed 074553063 Problem Other obesity due to excess calories E66.09 Act mary confirmed 343826206 Problem Body mass index (BMI) of 32.0-32.9 in adult Z68.32 Active confirmed 215379506 Problem Sinusitis, unspecified chronicity, unspecified location J32.9 Active confirmed 20760154 Problem Renal calculi N20.0 Active confirmed 566016 07 ALLERGIES Allergen (clinical drug ingredient) Drug/Non Drug Allergy do cumented on EMR Reaction Allergy Type Onset Date Status Sesonal runny nose, cough Non Drug Allergy A ctive ENCOUNTERS from 1976 to 2021-05-22 Encounter Location Date Provider Diagnosis [facility] [address] [phone] [place] [address] May, Karina Recoteodoro Kidney stone N20.0 and Left flank pain R 10.9 IMMUNIZATIONS Vaccine Route Administration Date Status TDAP 0.5mL (Boostrix) IM Intramuscular Jun 01, 2013 Administe red Influenza 6mo & up Fluzone Unknown November 23, 2018 Refus ed Influenza 6mo & up Fluzone Unknown Jul 01, 2018 Refus ed Influenza 6mo & up Fluzone Unknown Jul 18, 2016 Refus ed Influenza 6mo & up Fluzone Unknown Oct 07, 2014 Refus ed SOCIAL HISTORY Tobacco Use: Social History Observation Description Date Details (start date - stop date) Never Smoker Sex Assigned At : Social History Observation Description Sex Assigned At Unknown Education: Question Answer Notes Level of Education: High School Audit Question Answer Notes Total Score: 1 Interpretation: Alcohol Education Language: Question Answer Notes Languages spoken: Yi Evangelical: Question Answer Notes Evangelical 33 None Drug and Alcohol Question Answer Notes Total Score: 0 Interpretation: No problems reported Alcohol Screening: Question Answer Notes Did you have a drink containing alcohol in the past year? No Points 0 Interpretation Negative BMI Care Goal Follow-Up Question Answer Notes Above Normal BMI Follow-Up Dietary management educatio n, guidance, and counseling Tobacco Use: Question Answer Notes Are you a: never smoker REASON FOR REFERRAL No Information VITAL SIGNS Weight 182 lbs May, Weight-kg 82.55 kg May, Height 63.5 in May, BMI 31.73 kg/m2 May, Heart Rate 84 /min May, Respiratory Rate 18 /min May, Temperature 97.2 degrees Fahrenheit May, Oximetry 94% May, Blood pressure systolic 128 mm Hg May, Blood pressure diastolic 84 mm Hg May, MEDICATIONS Medication SIG (Take, Route, Frequency, Duration) Notes Start Da te End Date Status Cetirizine HCl 10 MG 1 tablet as needed Orally Once a day for 90 day( s) Active Xyzal Allergy 24HR 5 MG 1 tablet in the evening Orally Once a day for 30 day(s) Not-Taking Flomax 0.4 MG 1 capsule Orally Once a day for 30 day(s) May, Active Montelukast Sodium 10 MG 1 tablet Orally Once a day for 30 day(s) Active Percocet 5-325 MG 1 tablet as needed Orally every 6 hrs, MDD4 May, Active amLODIPine Besylate 10 mg 1 tablet Orally Once a day for 90 day(s) Active Claritin-D 24 Hour 10-240 MG 1 tablet as needed Orally Once a day for 30 day(s) Active Ketorolac Tromethamine 10 MG 1 tablet with food or mil k as needed Orally every 6 hrs for 5 day(s) May, Active Lisinopril 40 MG 1 tablet Orally Once a day for 90 day(s) Aug, Active Dymista 137-50 MCG/ACT 1 spray in each nostril Nasa lly Twice a day for 30 day(s) Active Aspir-81 81 MG 1 tablet Orally Once a day for 90 days Active Singulair 10 mg 1 tablet in the evening Orally Once a day for 90 day( s) Not-Taking TriNessa (28) 0.18/0.215/0.25 MG-35 MCG TAKE ONE TABLE T BY MOUTH ONCE A DAY Daily for 28 days Active Metoprolol Succinate 25 mg 1 tablet Orally Once a day for 90 day(s) Active prednisoLONE Acetate 1 % 1 drop into affected eye Ophthalmic Twice a day Not-Taking PROCEDURES No Information RESULTS No Results REASON FOR VISIT 44yo female w/ recurrent renal calculi, pls further eval/tx accordingly MEDICAL (GENERAL) HISTORY Type Description Date Medical History HTN Medical History GERD Medical History RAD Medical History retinal embolic event Medical History ASD vs PFO (SAIDA pending) Medical History CTS Medical History KIDNEY STONE Medical History swollen eyes Surgical History carpal tunnel left arm 01/01/17 Surgical History ESWL 07/09/18 Surgical History ESWL 08/20/18 Hospitalization History childbirth x 2 Hospitalization History HTN urgency 10/01/2012 Goals Section No Information Health Concerns No Information MEDICAL EQUIPMENT No Information MENTAL STATUS No Information FUNCTIONAL STATUS No Information ASSESSMENTS Encounter Date Diagnosis Assessment Notes Treatment Notes Treatm ent Clinical Notes May, Kidney stone (ICD-10 - N20.0) May, Left flank pain (ICD-10 - R10.9) PLAN OF TREATMENT Medication Medication Name Sig Start Date Stop Date Flomax 0.4 MG 1 capsule Orally Once a day for 30 day(s) May Percocet 5-325 MG 1 tablet as needed Orally every 6 hrs, MDD4 May, Ketorolac Tromethamine 10 MG 1 tablet with food or mil k as needed Orally every 6 hrs for 5 day(s) May, Treatment Notes Test Name Order Date CT ABD & Pelvis w/o Contrast 2021-05-18 Future Test Test Name Order Date URINE CULTURE [id number] UA URINALYSIS [id number] Next Appt Details we will call with results Reason: Provider Name:Franca Lubin, 10:00:00 AM, [address] [facility], , [place], [address], Insurance Providers Payer Name Payer Address Payer Phone Insured Name Patient Relati onship to Insured Coverage Start Date Coverage End Date MEDICAID [employer] [address] [facility] [address] [address] [facility]UN[facility] PLAN [facility] [address] [facility] [address] VIRGILIO KOHLER
--- OUTSIDE RECORDS SUMMARY | 2021-06-29 20:01 | CCD ---
Author Author [facility] Organization [facility] Address Unknown Phone Unavailable Care Team Providers Care Analytical Engineer Name Role Phone Franca Lubin Unavailable PROBLEMS Type Condition ICD9-CM Code [id number] Code Onset Dates Condition S tatus W/U Status Risk SNOMED Code Notes Problem Essential hypertension I10 Active confirmed 20396668 Problem Mixed hyperlipidemia E78.2 Active confirmed 622951910 Problem Abnormal echocardiogram R93.1 Active confirmed 606513623 in 2013, small PFO versus secundum atrial septal defect Problem Allergic asthma, mild intermittent, uncomplicated J45.20 Active confirmed 335143245 Problem Seasonal allergic rhinitis due to other allergic trigger J30.89 Active confirmed 408024006 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 Active confirmed 82137388 Problem Renal artery stenosis I70.1 Active confirmed 219903563 Problem Calculus of kidney N20.0 Active confirmed 9 2141683 Problem 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 Active confirmed 468673515269725 Problem Sinusitis, unspecified chronicity, unspecified location J32.9 Active confirmed 47457341 Problem Renal stones N20.0 Active confirmed 9717734 7 Problem Renal calculi N20.0 Active confirmed 860653 07 Problem Kidney calculus N20.0 Active confirmed 9557 0007 Problem PFO (patent foramen ovale) Q21.1 Active confirmed 382898530 Problem Influenza vaccination declined Z28.21 Active confir med 105220301 Problem Other obesity due to excess calories E66.09 Act mary confirmed 532545231 Problem Body mass index (BMI) of 32.0-32.9 in adult Z68.32 Active confirmed 741251340 ALLERGIES Allergen (clinical drug ingredient) Drug/Non Drug Allergy do cumented on EMR Reaction Allergy Type Onset Date Status Sesonal runny nose, cough Non Drug Allergy A ctive ENCOUNTERS from 1975 to 2021-04-24 Encounter Location Date Provider Diagnosis [facility] Brian [address] [facility] [phone] [place] [address] 10 Apr, 2021 Franca Lubin Renal calculi N20.0 IMMUNIZATIONS Vaccine Route Administration Date Status TDAP [...] Education Language: Question Answer Notes Languages spoken: Yemeni Mandaen: Question Answer Notes Mandaen 33 None Drug and Alcohol Question Answer [...] you a: never smoker REASON FOR REFERRAL from 1975 to 2021-04-24 Reason 44yo female w/ recurrent delmi al calculi, pls further eval/tx accordingly Diagnosis 1 Renal calculi (N20.0) Referral Organization [facility] Brian Referring Provider First Name Franca Referring Provider Last Name Tristian Referring Provider Specialty Family Medicine Referred Organization [facility]rology Referred Provider Johnie Foster Rachel Referred Address [address] ,[phone] ,[place], [place],[address] Referred Provider Specialty Urology Referral Priority Routine General Notes Roberta Eldridge 04/24/2021 5:1 5:01 PM > [facility] Referral ID:[id number],Daniela 04/24/2021 5:15:22 PM > Sent VITAL SIGNS No information MEDICATIONS Medication SIG (Take, Route, Frequency, Duration) Notes Start Da te End Date Status Aspir-81 81 MG 1 tablet Orally Once a day for 90 days Active Lisinopril 40 MG 1 tablet Orally Once a day for 90 day(s) Aug, Active Singulair 10 mg 1 tablet in the evening Orally Once a day for 90 day( s) Not-Taking TriNessa (28) 0.18/0.215/0.25 MG-35 MCG TAKE ONE TABLE T BY MOUTH ONCE A DAY Daily for 28 days Active Cetirizine HCl 10 MG 1 tablet as needed Orally Once a day for 90 day( s) Active amLODIPine Besylate 10 mg 1 tablet Orally Once a day for 90 day(s) Active Metoprolol Succinate 25 mg 1 tablet Orally Once a day for 90 day(s) Active Montelukast Sodium 10 MG 1 tablet Orally Once a day for 30 day(s) Active PROCEDURES No Information RESULTS No Results REASON FOR VISIT referral MEDICAL (GENERAL) HISTORY Type Description Date Medical History HTN Medical History GERD Medical History RAD Medical History retinal embolic event Medical History ASD vs PFO (SAIDA pending) Medical History CTS Medical History KIDNEY STONE Surgical History carpal tunnel left arm 01/01/17 Surgical History ESWL 07/09/18 Surgical History ESWL 08/20/18 Hospitalization History childbirth x 2 Hospitalization History HTN urgency 10/01/2012 Goals Section No Information Health Concerns No Information MEDICAL EQUIPMENT No Information MENTAL STATUS No Information FUNCTIONAL STATUS No Information ASSESSMENTS Encounter Date Diagnosis Assessment Notes Treatment Notes Treatm ent Clinical Notes Apr, Renal calculi (ICD-10 - N20.0) PLAN OF TREATMENT Medication Medication Name Sig Start Date Stop Date Aspir-81 81 MG 1 tablet Orally Once a day for 90 days amLODIPine Besylate 10 mg 1 tablet Orally Once a day for 90 day( s) Lisinopril 40 MG 1 tablet Orally Once a day for 90 day(s) Aug Metoprolol Succinate 25 mg 1 tablet Orally Once a day for 90 day (s) TriNessa (28) 0.18/0.215/0.25 MG-35 MCG TAKE ONE TABLE T BY MOUTH ONCE A DAY Daily for 28 days Referrals Referral Date Details 44yo female w/ recurrent delmi al calculi, pls further eval/tx accordingly, Karina Foster, [address], [place], [address], Next Appt Details Provider Name:Franca Lubin, 10:00:00 AM, [address] [address] [facility], , [place], [address], Insurance Providers Payer Name Payer Address Payer Phone Insured Name Patient Relati onship to Insured Coverage Start Date Coverage End Date MEDICAID [employer] [address] [facility] [address] [address] [facility] [address] [facility] [address] VIRGILIO KOHLER
--- OUTSIDE RECORDS SUMMARY | 2021-06-29 20:01 | CCD ---
Author Author [facility] Organization [facility] Address Unknown Phone Unavailable Care Team Providers Care Heel Caser Name Role Phone Franca Lubin Unavailable PROBLEMS Type Condition ICD9-CM Code [id number] Code Onset Dates Condition S tatus W/U Status Risk SNOMED Code Notes Problem Allergic asthma, mild intermittent, uncomplicated J45.20 Active confirmed 800742054 Problem Mixed hyperlipidemia E78.2 Active confirmed 054181148 Problem Abnormal echocardiogram R93.1 Active confirmed 044955646 in 2013, small PFO versus secundum atrial septal defect 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 Active confirmed 28216459 Problem Essential hypertension I10 Active confirmed 32988235 Problem Renal stones N20.0 Active confirmed 2989119 7 Problem Calculus of kidney N20.0 Active confirmed 9 6850224 Problem Renal artery stenosis I70.1 Active confirmed 362483973 Problem Other obesity due to excess calories E66.09 Act mary confirmed 938762666 Problem Kidney calculus N20.0 Active confirmed 9557 0007 Problem Sinusitis, unspecified chronicity, unspecified location J32.9 Active confirmed 96229982 Problem Seasonal allergic rhinitis due to other allergic trigger J30.89 Active confirmed 776915489 Problem 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 Brian Bryan [facility] [phone] Sl[address] [place] [address] Mar, Franca Lubin PFO (patent foramen ovale) Q 21.1 IMMUNIZATIONS Vaccine Route Administration Date Status TDAP [...] Education Language: Question Answer Notes Languages spoken: Hebrew Yazidi: Question Answer Notes Yazidi 33 None Drug and Alcohol Question Answer [...] REASON FOR REFERRAL No Information VITAL SIGNS No information MEDICATIONS Medication SIG [...] Information RESULTS No Results REASON FOR VISIT Aspirin Refill MEDICAL (GENERAL) HISTORY Type Description Date Medical [...] Notes Treatment Notes Treatm ent Clinical Notes Mar, PFO (patent foramen ovale) (ICD-10 - Q21.1) PLAN OF TREATMENT Medication Medication Name Sig [...] ONCE A DAY Daily for 28 days Next Appt Details Provider Name:Franca Lubin, 10:00:00 AM, [address] [facility], , [place], [address], Insurance Providers Payer Name Payer Address Payer Phone Insured Name Patient Relati onship to Insured Coverage Start Date Coverage End Date MEDICAID [employer] [address] [facility] [address] [address] [facility] [address] [facility] [address] VIRGILIO KOHLER
--- OUTSIDE RECORDS SUMMARY | 2021-06-29 20:01 | CCD | Continuity of Care Document ---
Author Author [facility], Organization [facility] Address Unknown Phone Unavailable Care Team Providers Care Senior Analyst Developer Name Role Phone Robert CARMICHAEL, Heather Saha Unavailable Unavailable Allergies, Adverse Reactions, Alerts Substance Reaction Status Substance Type Unknown Medications Medication Instructions Dosage Effective Dates (start - stop) Sta tus Comments Flonase Allergy Relief 50 mcg/actuation nasal spray,padron spension inhale 2 spray by intranasal route every day in each nostril 100 MCG - Acti ve Zithromax Z-Nic 250 mg tablet take 2 tablet by oral ro scott every day for 1 day then 1 tablet (250 mg) by oral route once daily for 4 days 500 MG - No Longer Active Problems Condition Effective Dates (start - stop) Clinical Status COVID COVID Cerumen Impaction Muscle Spasm, Spasms Contusion of hip Allergic rhinitis due to pollen Temporomandibular joint disorders, unspecified - Chronic Muscle Spasm, Spasms - Chronic Other syndromes affecting cervical region - Chronic Asthma, Unspecified - Chronic Temporomandibular joint disorder - Active Spasm - Active Cervical syndrome - Active Asthma - Active Procedures Procedure Date OFFICE/OUTPATIENT VISIT, EST REMOVE IMPACTED EAR WAX OFFICE/OUTPATIENT VISIT, EST OFFICE/OUTPATIENT VISIT, EST OFFICE/OUTPATIENT VISIT, EST OFFICE/OUTPATIENT VISIT, EST OFFICE/OUTPATIENT VISIT, EST Results Test Name Date and Time Measure Units Reference Range Abnormal Flag St atus Comments Unknown Encounters Encounter Description Practice Location Reason(s) For Visit Diagnose s Date Provider Providers Copied on Encounter [facility], [address] [place] [address], [phone], [facility] COVID Robert Saha. [address], [place], [place], [id number], [place]. tel:[phone] OFFICE/OUTPATIENT VISIT, [facility], [address] [place] [address], [phone], [facility] sinus (chief complaint)Sinus symptoms (acute) (chief complaint) COVID Robert Saha. [address], [place], [place], [address], [place]. tel:[phone] OFFICE/OUTPATIENT VISIT, [facility], [address] [place] [address], [phone], [facility] Earache (chief complaint) Cerumen Impaction Cecilio gauthier. [address], [place], [address], [place]. tel:[phone] OFFICE/OUTPATIENT VISIT, [facility], [address] [place] [address], [phone], [facility] neck pain (jed f complaint) Muscle Spasm, Spasms Patrizia allana. [address] [facility], [address], [place], [address], [place]. tel:[phone] [facility], [address] [place] [address] [place], [phone], [facility] Temporomandibular join t disorders, unspecifiedMuscle Spasm, Spasms Nika Kana. [address] [facility], [place], [address], [place]. tel:[phone] OFFICE/OUTPATIENT VISIT, [facility], [address] [place] [address], [phone], [facility] left hip pain ( chief complaint)dizziness (chief complaint) Contusion of hip Alta Ortiz. [address] [facility], [address], [place], [address], [place]. tel:[phone] OFFICE/OUTPATIENT VISIT, [facility], , [address], [place], [phone], [facility] difficulty breathing/asthma (chief complaint) Other syndromes affecting cervical regionAsthma, UnspecifiedAllergic rhinitis due to pollen Yonatan Jacobson. [address], [address], [place]. tel:[phone] OFFICE/OUTPATIENT VISIT, [facility], , [address], [place], [phone], [facility] Ramiro Saurav. [address], [place], [address], [place]. tel:[phone] Family History Family Member Diagnosis Age At Onset Unknown Immunizations Vaccine Date Status Comments Immunization Unknown Payers Payer name Insurance type Covered green party ID Authorization(s ) [facility] [id number] Social History Type Description Quantity Date Captured Comments Alcohol Use Details Unknown Caffeine Use Details Unknown Tobacco Use Status Unknown Smoking Status Unknown Vital Signs Date / Time: Height Weight BMI Pulse Rate Blood Pressure Temperatu re Respiratory Rate Body Surface Area Head Circumference BMI percentile Unknown Chief Complaint And Reason For Visit No Information Reason For Referral Reason For Referral Unknown Plan Of Care Date Type Action Status Referral Ordered: Chiropractor (related to Other syndromes affecting cervical region) ordered Referral Ordered: Referral: Chiropractor. Evaluate and treat. ordered Referral Ordered: Ever Jhaveri MD (related to Asthma, Unspecified) ordered Referral Referred To: Robe Gaffney MD [address] [facility] [address] [place], [phone] Ordered: Referral: Robe Gaffney MD. ordered Referral Referred To: Ever Jhaveri MD [address] [place] [address], [phone] Ordered: Referral: Ever Jhaveri MD. Evaluate and treat. ordered Date Type Problem Goal Intervention Status Start D ate Unknown History Of Present Illness Encounter Date Complaint History Of Present I llness Sinus symptoms (acute) Pertinent/initial symptoms include sinus congestion. Pertinent negatives include anosmia, cough, dental disease, deviated septum, fever, halitosis, headache, immunosuppression, nasal drainage, nasal obstruction, orbital swelling, otalgia, postnasal drainage, rhinorrhea, sinus pressure, sore throat, tooth pain or tooth sensitivity. sinus Earache Onset: 3 weeks ago. Severity level is moderate. Duration: 3 Weeks. The patient's niece states the earache is in both ears. It occurs constantly. The problem is worse. Associated symptoms include ear pressure, fullness in ears and hearing deficit. Pertinent negatives include bleeding from ear(s), congestion (nasal), dizziness, drainage (clear), drainage (purulent), fever, loss of balance, nausea and ringing in ears. Functional Status Encounter Date Functional Assessment Cognitive Assessme nt Unknown Medications Administered Medication Instructions Dosage Effective Dates (start - stop) Sta tus Comments Drug Treatment Unknown Instructions Date Instruction Additional Informati on Advised carbamide peroxide drops bid for 7 days Related to Cerumen Impaction asthma and allergy handouts Related to A sthma, Unspecified avoidance of allergens Related to Allerg ic rhinitis due to pollen
--- OUTSIDE RECORDS SUMMARY | 2021-06-29 20:01 | CCD | Continuity of Care Document ---
Author Author [facility], Organization [facility] Address Unknown Phone Unavailable Care Team Providers Care Manager Product Support Name Role Phone Robert CARMICHAEL, Heather Saha [...] s Date Provider Providers Copied on Encounter [facility], [address] [place] [address], [phone], [facility] COVID Robert Saha. [address], [place], [place], [id number], [place]. tel:[phone] OFFICE/OUTPATIENT VISIT, [facility], [address] [place] [address], [phone], [facility] sinus (chief complaint)Sinus symptoms (acute) (chief complaint) COVID Robert Saha. [address], [place], [place], [address], [place]. tel:[phone] OFFICE/OUTPATIENT VISIT, [facility], [address] [place] [address], [phone], [facility] Earache (chief complaint) Cerumen Impaction Cecilio gauthier. [address], [place], [address], [place]. tel:[phone] OFFICE/OUTPATIENT VISIT, [facility], [address] [place] [address], [phone], [facility] neck pain (jed f complaint) Muscle Spasm, Spasms Patrizia allana. [address] [facility], [address], [place], [address], [place]. tel:[phone] [facility], [address] [place] [address] [place], [phone], [facility] Temporomandibular join t disorders, unspecifiedMuscle Spasm, Spasms Nika Kana. [address] [facility], [place], [address], [place]. tel:[phone] OFFICE/OUTPATIENT VISIT, [facility], [address] [place] [address], [phone], [facility] left hip pain ( chief complaint)dizziness (chief complaint) Contusion of hip Alta Ortiz. [address], [address], [place], [address], [place]. tel:[phone] OFFICE/OUTPATIENT VISIT, [facility], , [address], [place], [phone], [facility] difficulty breathing/asthma (chief complaint) Other syndromes affecting cervical regionAsthma, UnspecifiedAllergic rhinitis due to pollen Yonatan Jacobson. [address], [address], [place], [address], [place]. tel:[phone] OFFICE/OUTPATIENT VISIT, [facility], , [address], [place], [id number], [facility] King Saurav. [address], [place], [address], [place]. tel:[phone] Family History Family Member Diagnosis Age At Onset Unknown Immunizations Vaccine Date Status Comments Immunization Unknown Payers Payer name Insurance type Covered libertarian ID Authorization(s ) [id number] [facility] [id number] Social History Type Description Quantity Date Captured Comments Alcohol Use Details Unknown Caffeine Use Details Unknown Tobacco Use Status Unknown Smoking Status Unknown Vital Signs Date / Time: Height Weight BMI Pulse Rate Blood Pressure Temperatu re Respiratory Rate Body Surface Area Head Circumference BMI percentile Unknown Chief Complaint And Reason For Visit From encounter dated '05/29/2021 17:00'. sinus (chief complaint) Sinus symptoms (acute) (chief complaint). Description: Pertinent/initial symptom s include sinus congestion. Pertinent negatives include anosmia, cough, dental disease, deviated septum, fever, halitosis, headache, immunosuppression, nasal d rainage, nasal obstruction, orbital swelling, otalgia, postnasal drainage, rhino rrhea, sinus pressure, sore throat, tooth pain or tooth sensitivity. Reason For Referral Reason For Referral Unknown Plan Of Care Date Type Action Status Referral Ordered: Chiropractor (related to Other syndromes affecting cervical region) ordered Referral Ordered: Referral: Chiropractor. Evaluate and treat. ordered Referral Ordered: Ever Jhaveri MD (related to Asthma, Unspecified) ordered Referral Referred To: Robe Gaffney MD [address] [facility] [address] [place], [phone] Ordered: Referral: Robe Gaffney MD. ordered Referral Referred To: Ever Jhaveri MD 2 [facility] [address] [place], [place], [phone] Ordered: Referral: Ever Jhaveri MD. Evaluate and [...]
--- OUTSIDE RECORDS SUMMARY | 2021-06-29 20:01 | CCD ---
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 Active confirmed 51607036 Problem Abnormal echocardiogram R93.1 Active confirmed 288587060 in 2013, small PFO versus secundum atrial septal defect Problem Kidney calculus N20.0 Active confirmed 9557 0007 Problem Seasonal allergic rhinitis due to other allergic trigger J30.89 Active confirmed 932931547 Problem Calculus of kidney N20.0 Active confirmed 9 7013257 Problem 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 Active confirmed 104473010205256 Problem PFO (patent foramen ovale) Q21.1 Active confirmed 720198416 Problem Renal calculi N20.0 Active confirmed 883234 07 Problem Renal artery stenosis I70.1 Active confirmed 496242976 Problem 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 Active confirmed 783228329422155 Problem Renal stones N20.0 Active confirmed 9641191 7 Problem Influenza vaccination declined Z28.21 Active confir med 148047887 Problem Other obesity due to excess calories E66.09 Act mary confirmed 787524456 Problem Body mass index (BMI) of 32.0-32.9 in adult Z68.32 Active confirmed 806995711 Problem Sinusitis, unspecified chronicity, unspecified location J32.9 Active confirmed 30095811 ALLERGIES Allergen (clinical drug ingredient) Drug/Non Drug Allergy do cumented on EMR Reaction Allergy Type Onset Date Status Sesonal runny nose, cough Non Drug Allergy A ctive ENCOUNTERS from 1976 to 2021-05-16 Encounter Location Date Provider Diagnosis [facility] Brian [address] [facility] [phone] [place] [address] Apr, Sara Mott Edema of right eye, unspecif ied eyelid H02.843 and Edema of left eye, unspecified eyelid H02.846 IMMUNIZATIONS Vaccine Route Administration Date Status TDAP [...] Education Language: Question Answer Notes Languages spoken: Azeri Caodaism: Question Answer Notes Caodaism 33 None Drug and Alcohol Question Answer [...] smoker REASON FOR REFERRAL from 1976 to 2021-05-16 Reason atopic conjunctivitis Diagnosis 1 Edema of right eye, unspecif ied eyelid (H02.843) Referral Organization [facility] Brian Referring Provider First Name Sara Referring Provider Last Name Pantera Referring Provider Specialty Family Medicine Referred Provider Jake Griggs Referred Provider Specialty Ophthalmology Referral Priority Routine General Notes ChenteRoberta 05/15/2021 1:5 4:15 PM > Sent VITAL SIGNS Weight 181.6 lbs Apr, Weight-kg 82.37 kg Apr, Height 63.5 in Apr, BMI 31.66 kg/m2 Apr, Heart Rate 80 /min Apr, Respiratory Rate 18 /min Apr, Temperature 97.1 degrees Fahrenheit Apr, Oximetry 96 Apr, Blood pressure systolic 146 mm Hg Apr, Blood pressure diastolic 81 mm Hg Apr, MEDICATIONS Medication SIG (Take, Route, Frequency, Duration) Notes Start Da te End Date Status Cetirizine HCl 10 MG 1 tablet as needed Orally Once a day for 90 day( s) Active Xyzal Allergy 24HR 5 MG 1 tablet in the evening Orally Once a day for 30 day(s) Not-Taking Lisinopril 40 MG 1 tablet Orally Once a day for 90 day(s) Aug, Active amLODIPine Besylate 10 mg 1 tablet Orally Once a day for 90 day(s) Active Claritin-D 24 Hour 10-240 MG 1 tablet as needed Orally Once a day for 30 day(s) Active Aspir-81 81 MG 1 tablet Orally Once a day for 90 days Active Dymista 137-50 MCG/ACT 1 spray in each nostril Nasa lly Twice a day for 30 day(s) Active Montelukast Sodium 10 MG 1 tablet Orally Once a day for 30 day(s) Active Metoprolol Succinate 25 mg 1 tablet Orally Once a day for 90 day(s) Active prednisoLONE Acetate 1 % 1 drop into affected eye Ophthalmic Twice a day Active TriNessa (28) 0.18/0.215/0.25 MG-35 MCG TAKE ONE TABLE T BY MOUTH ONCE A DAY Daily for 28 days Active Singulair 10 mg 1 tablet in the evening Orally Once a day for 90 day( s) Not-Taking PROCEDURES No Information RESULTS No Results REASON FOR VISIT 2 week follow up MEDICAL (GENERAL) HISTORY Type Description Date Medical [...] Treatment Notes Treatm ent Clinical Notes Apr, Edema of right eye, unspecified eyelid (ICD-10 - H02.843) Patient with bilat lower eyelid and orbital edema with some improvement from oral and topical antihistamines. Unresponsive to artifical tears and cool compresses. Recommend trial of arnicare gel. Advised do not get in eyes or ingest. Use HS. Continue with antihistamines. Referral placed to marketing technology specialist. F/u in 1 month if not improving. ER for new or worsening sxs. Patient educated on diagnosis, medications, treatments, and expected outcomes. Patient educated on risks, SE/AE, benefits, alternatives of regimen. Discussed emergent signs and symptoms and to seek emergency medical attention if they occur. Patient voiced understanding and had all questions answered. Apr, Edema of left eye, unspecified eyelid (ICD-10 - H02.846) PLAN OF TREATMENT Treatment Notes Assessment Notes Clinical Notes Edema of right eye, unspecified eyelid Patient with bi lat lower eyelid and orbital edema with some improvement from oral and topical antihistamines. Unresponsive to artifical tears and cool compresses. Recommend trial of arnicare gel. Advised do not get in eyes or ingest. Use HS. Continue with antihistamines. Referral placed to marketing technology specialist. F/u in 1 month if not improving. ER for new or worsening sxs. Patient educated on diagnosis, medicatio ns, treatments, and expected outcomes. Patient educated on risks, SE/AE, benefits, alternatives of regimen. Discussed emergent signs and symptoms and to seek emergency medical attention if they occur. Patient voiced understanding and had all questions answered. Referrals Referral Date Details atopic conjunctivitis, Jake Griggs Next Appt Details Provider Name:Karina Foster, 3 10:45:00 AM, [address], , [place], [address], Provider Name:Franca Lubin, 10:00:00 AM, [address], , [place], [address], Insurance Providers Payer Name Payer Address Payer Phone Insured Name Patient Relati onship to Insured Coverage Start Date Coverage End Date MEDICAID [employer] [address] [facility] [id number] [facility] [address] [facility] [address] [employer] K[employer]
--- OUTSIDE RECORDS SUMMARY | 2021-06-29 20:01 | CCD ---
Author Author [facility] Organization 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 Active confirmed 58735844 Problem Abnormal echocardiogram R93.1 Active confirmed 476834504 in 2013, small PFO versus secundum atrial septal defect Problem Kidney calculus N20.0 Active confirmed 9557 0007 Problem Seasonal allergic rhinitis due to other allergic trigger J30.89 Active confirmed 591237877 Problem Calculus of kidney N20.0 Active confirmed 9 7225346 Problem 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 Active confirmed 196486028004453 Problem PFO (patent foramen ovale) Q21.1 Active confirmed 162652735 Problem Renal calculi N20.0 Active confirmed 143064 07 Problem Renal artery stenosis I70.1 Active confirmed 406976439 Problem 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 Active confirmed 738364968199435 Problem Renal stones N20.0 Active confirmed 8854861 7 Problem Influenza vaccination declined Z28.21 Active confir med 909486632 Problem Other obesity due to excess calories E66.09 Act mary confirmed 149953968 Problem Body mass index (BMI) of 32.0-32.9 in adult Z68.32 Active confirmed 572284332 Problem Sinusitis, unspecified chronicity, unspecified location J32.9 Active confirmed 42987115 ALLERGIES Allergen (clinical drug ingredient) Drug/Non Drug Allergy do cumented on EMR Reaction Allergy Type Onset Date Status Sesonal runny nose, cough Non Drug Allergy A ctive ENCOUNTERS from 1976 to 2021-05-02 Encounter Location Date [facility] [address] [facility] [phone] [place] [address] Apr, Sara Pantera Edema of bilateral orbit H05 .223 IMMUNIZATIONS Vaccine Route Administration Date Status TDAP [...] Education Language: Question Answer Notes Languages spoken: Belarusian Anabaptism: Question Answer Notes Anabaptism 33 None Drug and Alcohol Question Answer [...] FOR REFERRAL No Information VITAL SIGNS Weight 185.4 lbs Apr, Weight-kg 84.1 kg Apr, Height 63.5 in Apr, BMI 32.32 kg/m2 Apr, Heart Rate 95 /min Apr, Respiratory Rate 19 /min Apr, Temperature 98.6 degrees Fahrenheit Apr, Oximetry 97 Apr, Blood pressure systolic 168 mm Hg Apr, Blood pressure diastolic 108 mm Hg Apr, MEDICATIONS Medication SIG (Take, Route, Frequency, Duration) Notes Start Da te End Date Status amLODIPine Besylate 10 mg 1 tablet Orally Once a day for 90 day(s) Active Cetirizine HCl 10 MG 1 tablet as needed Orally Once a day for 90 day( s) Active Xyzal Allergy 24HR 5 MG 1 tablet in the evening Orally Once a day for 30 day(s) Active prednisoLONE Acetate 1 % 1 drop into affected eye Ophthalmic Twice a day Active Singulair 10 mg 1 tablet in the evening Orally Once a day for 90 day( s) Not-Taking Dymista 137-50 MCG/ACT 1 spray in each nostril Nasa lly Twice a day for 30 day(s) Active Metoprolol Succinate 25 mg 1 tablet Orally Once a day for 90 day(s) Active TriNessa (28) 0.18/0.215/0.25 MG-35 MCG TAKE ONE TABLE T BY MOUTH ONCE A DAY Daily for 28 days Active Lisinopril 40 MG 1 tablet Orally Once a day for 90 day(s) Aug, Active Montelukast Sodium 10 MG 1 tablet Orally Once a day for 30 day(s) Active Aspir-81 81 MG 1 tablet Orally Once a day for 90 days Active PROCEDURES No Information RESULTS No Results REASON FOR VISIT irritated eyes MEDICAL (GENERAL) HISTORY Type Description Date Medical [...] Treatm ent Clinical Notes Apr, Edema of bilateral orbit (ICD-10 - H05.223) Bilat lower orbital edema intermittent which responds to ophthalmic prednisone, antihistamines and decongestants. Mock Up Assembler dx her with atopic conjunctivitis. Sxs minimal today. Recommend continuing dymista, Zyrtec, Singulair. Start artificial tears as directed. Continue warm and cool compresses. F/u in 2 weeks. ER or eye doctor immediately for new or worsening sxs. Patient educated on diagnosis, medications, treatments, and expected outcomes. Patient educated on risks, SE/AE, benefits, alternatives of regimen. Discussed emergent signs and symptoms and to seek emergency medical attention if they occur. Patient voiced understanding and had all questions answered. PLAN OF TREATMENT Treatment Notes Assessment Notes Clinical Notes Edema of bilateral orbit Bilat lower orbital edema in termittent which responds to ophthalmic prednisone, antihistamines and decongestants. Mock Up Assembler dx her with atopic conjunctivitis. Sxs minimal today. Recommend continuing dymista, Zyrtec, Singulair. Start artificial tears as directed. Continue warm and cool compresses. F/u in 2 weeks. ER or eye doctor immediately for new or worsening sxs. Patient educated on diagnosis, medicatio ns, treatments, and expected outcomes. Patient educated on risks, SE/AE, benefits, alternatives of regimen. Discussed emergent signs and symptoms and to seek emergency medical attention if they occur. Patient voiced understanding and had all questions answered. Next Appt Details Provider Name:Sara Debo Mott, 05-15 11:00:00 AM, [address] [facility], , [place], [address], Provider Name:Karina Foster, 3 10:45:00 AM, [address], , [place], [address], Provider Name:Franca Lubin, 10:00:00 AM, [address] [facility], , [place], [address], Insurance Providers Payer Name Payer Address Payer Phone Insured Name Patient Relati onship to Insured Coverage Start Date Coverage End Date MEDICAID [place] [address] [facility] [id number] [facility] COMMUNITY PLAN [facility] [address] [facility] [address] [phone] [employer]ER
--- OUTSIDE RECORDS SUMMARY | 2021-06-29 20:01 | CCD ---
Author Author [facility] Organization [facility] Address Unknown Phone Unavailable Care Team Providers Care Product Development Scientist Name Role Phone Karina Foster Unavailable PROBLEMS Type Condition ICD9-CM Code [id number] Code Onset Dates Condition S tatus W/U Status Risk SNOMED Code Notes Problem Essential hypertension I10 Active confirmed 70382944 Problem Mixed hyperlipidemia E78.2 Active confirmed 513029159 Problem Abnormal echocardiogram R93.1 Active confirmed 551577031 in 2013, small PFO versus secundum atrial septal defect Problem Allergic asthma, mild intermittent, uncomplicated J45.20 Active confirmed 625416337 Problem Seasonal allergic rhinitis due to other allergic trigger J30.89 Active confirmed 661981297 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 Active confirmed 28943433 Problem Renal stones N20.0 Active confirmed 5003467 7 Problem Kidney calculus N20.0 Active confirmed 9557 0007 Problem 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 Active confirmed 420991159502704 Problem PFO (patent foramen ovale) Q21.1 Active confirmed 175909164 Problem Influenza vaccination declined Z28.21 Active confir med 623171144 Problem Kidney stone N20.0 Active confirmed 4096089 7 Problem Calculus of kidney N20.0 Active confirmed 9 6731186 Problem 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 Active confirmed 357706613223744 Problem Renal artery stenosis I70.1 Active confirmed 898116703 Problem Other obesity due to excess calories E66.09 Act mary confirmed 317508090 Problem Body mass index (BMI) of 32.0-32.9 in adult Z68.32 Active confirmed 561215858 Problem Sinusitis, unspecified chronicity, unspecified location J32.9 Active confirmed 32781100 Problem Renal calculi N20.0 Active confirmed 873884 07 ALLERGIES Allergen (clinical drug ingredient) Drug/Non Drug Allergy do cumented on EMR Reaction Allergy Type Onset Date Status Sesonal runny nose, cough Non Drug Allergy A ctive ENCOUNTERS from 1975 to 2021-06-11 Encounter Location Date Provider Diagnosis [facility] [address] [phone] [place] [address] May, Karina Foster IMMUNIZATIONS Vaccine Route Administration Date Status TDAP [...] Education Language: Question Answer Notes Languages spoken: Upper Sorbian Temple: Question Answer Notes Temple 33 None Drug and Alcohol Question Answer [...] Once a day for 30 day(s) Not-Taking Montelukast Sodium 10 MG TAKE ONE TABLET BY MOUTH EVERY EVENING for 9 0 Active Percocet 5-325 MG 1 tablet as needed Orally every 6 hrs, MDD4 May, Active Flomax 0.4 MG 1 capsule Orally Once a day for 30 day(s) May, Active amLODIPine Besylate 10 mg 1 [...] Information RESULTS No Results REASON FOR VISIT CT results MEDICAL (GENERAL) HISTORY Type Description Date Medical [...] No Information FUNCTIONAL STATUS No Information ASSESSMENTS No Information PLAN OF TREATMENT Medication Medication Name Sig Start Date Stop Date Flomax 0.4 MG 1 capsule Orally Once a day for 30 day(s) May Percocet 5-325 MG 1 tablet as needed Orally every 6 hrs, MDD4 May, Ketorolac Tromethamine 10 MG 1 tablet with food or mil k as needed Orally every 6 hrs for 5 day(s) May, Montelukast Sodium 10 MG TAKE ONE TABLET BY MOUTH EVERY EVENING for 90 Next Appt Details Provider Name:Franca Lubin, 2021-06- 10:00:00 AM, [address] [facility], , [place], [address], Provider Name:Karina Foster, 2021-06-15 8 11:15:00 AM, [address], , [place], [address], Insurance Providers Payer Name Payer Address Payer Phone Insured Name Patient Relati onship to Insured Coverage Start Date Coverage End Date [facility] COMM[facility]AN [facility] [address] [facility] [phone] VIRGILIO KOHLER MEDICAID [employer] [address] [facility] [address] VIRGILIO KOHLER
[2021-06-29 21:30] VITALS: BP 152/86
== END 2021-06-29 21:50 | disposition home or self-care (01) ==
LOC: EDBD 17:48 → M ED 17:48
DX: S00.03XA Contusion of scalp, initial encounter (principal); V43.52XA Car driver injured in collision with other type car in traffic accident, initial encounter; Y92.410 Unspecified street and highway as the place of occurrence of the external cause; I10 Essential (primary) hypertension; J45.909 Unspecified asthma, uncomplicated; Z79.899 Other long term (current) drug therapy; Z79.82 Long term (current) use of aspirin

== ENCOUNTER → 2021-07-17 | Outpatient (POV) | payer OTHER ==
[~2021-07-17] VITALS: Ht 162.6 cm; Wt 81.8 kg
[~2021-07-17] MED LIST changes: +TRI-TAB16 PO
[2021-07-17 09:05] VITALS: BP 137/85
--- NOTE | 2021-07-19 09:49 | IRCOV ---
[facility] IR Consult Office Visit IR Consult Office Visit DATE: Jul 17, 2021 REASON FOR CONSULTATION/CHIEF COMPLAINT: Left kidney stone. HISTORY OF PRESENT ILLNESS: 45-year-old female with chronic history of left kidney stone, sometimes suffers with renal colic and hematuria associated with passing stones in the past. She denies any prior history of infections, pyelonephritis, fevers or chills. She denies any left flank pain. She reports ESWL pre-Covid which did not work. She reports no issues with her kidney function. She reports no family history of kidney stones. No prior left kidney procedure or surgery. She is on aspirin 81 mg. ALLERGIES: Please see below. HOME MEDICATIONS: Please see below. PAST MEDICAL HISTORY: Hypertension PAST SURGICAL HISTORY: Carpal tunnel surgery FAMILY HISTORY: Noncontributory. SOCIAL HISTORY: Non-smoker. Denies alcohol or drugs. REVIEW OF SYSTEMS: Otherwise negative. PHYSICAL EXAMINATION: VITAL SIGNS: Please see below. GENERAL APPEARANCE: Appears well. Comfortable at rest. HEENT: No scleral icterus. RESPIRATORY: Normal breathing at rest. CARDIOVASCULAR: Normal rate. ABDOMEN: Non-distended. No left flank tenderness. EXTREMITIES: No edema. NEUROLOGICAL: Alert and oriented. PSYCHIATRIC: Appropriate to circumstance. LABORATORY DATA: 07/17/21 hemoglobin 14.4 hematocrit 42.6 WBC 6.6 platelets 323. Sodium 139 potassium 4.3 BUN 18 creatinine 0.86 INR 0.9 Imaging: I personally reviewed the CT abdomen pelvis without contrast performed 06/04/2021. Large left staghorn calculus. ASSESSMENT/PLAN: 45-year-old female with left kidney stone, intermittent passing of stone fragments and hematuria presents for left PCNL access. We discussed the risks and benefits of left nephroureteral access for PCNL and patient is willing to proceed. We have scheduled the patient for nephroureteral catheter placement for PCNL. I spent 30 minutes reviewing patient's records, imaging and in consultation with the patient. Thank you for this referral. CC Dr. Mckinney Allergies Coded Allergies: No Known Drug Allergies (Verified Allergy, Unknown, 01/08/19) Home Medications Scheduled (Trinessa 0.18/0.215/0.25 mg-35 Mcg), 1 TAB PO DAILY, (Reported) Amlodipine Besylate (Amlodipine Besylate), 10 MG PO DAILY, (Reported) Aspirin (Aspir 81), 81 MG PO DAILY, (Reported) Lisinopril (Lisinopril), 40 MG PO DAILY, (Reported) Metoprolol Succinate (Metoprolol Succinate), 25 MG PO DAILY, (Reported) Scheduled PRN Cetirizine HCl (Cetirizine HCl), 10 MG PO PRN PRN for CONGESTION, (Reported) Montelukast Sodium (Montelukast Sodium), 10 MG PO PRN PRN for COUGH, (Reported) VS, I&O, 24H, Fishbone Vital Signs/I&O Vital Signs Date Time Temp Pulse Resp B/P (MAP) Pulse Ox O2 Delivery O2 Flow Rate FiO2 07/17/21 09:05 97.9 91 20 137/85 (102) 98 Room Air GAURAV LONG MD Jul 19, 2021 09:49
== END ==
LOC: M IRPOV 08:43
PROVIDERS: ATTEND Radiology Diagnostic Radiology
DX: N20.0 Calculus of kidney (principal); I10 Essential (primary) hypertension; Z79.82 Long term (current) use of aspirin; Z79.899 Other long term (current) drug therapy

== ENCOUNTER → 2021-07-17 | Outpatient (CLI) | payer OTHER ==
[~2021-07-17] MED LIST changes: -TRI-TAB16 PO
[2021-07-17 10:32] LABS: HEMATOCRIT 42.6 % (36.0-47.0); HEMOGLOBIN 14.4 g/dl (12.0-15.5); MEAN CORPUSCULAR HEMOGLOBIN 32.3 pg (27.0-33.0); MEAN CORPUSCULAR HGB CONC 33.8 g/dl (32.0-36.5); MEAN CORPUSCULAR VOLUME 95.5 fl (80.0-96.0); PLATELET COUNT, AUTOMATED 323 10^3/uL (150-450); RED BLOOD COUNT 4.46 10^6/uL (4.00-5.40); WHITE BLOOD COUNT 6.6 10^3/uL (4.0-10.0)
[2021-07-17 10:38] LABS: APPEARANCE, URINE CLOUDY (CLEAR); BACTERIA, URINE AUTO 1+ (NEGATIVE); BILIRUBIN, URINE AUTO NEGATIVE (NEGATIVE); BLOOD, URINE BLOOD 3+ (NEGATIVE); COLOR, URINE YELLOW (YELLOW); GLUCOSE, URINE (UA) AUTO NEGATIVE (NEGATIVE); KETONE, URINE AUTO NEGATIVE (NEGATIVE); LEUKOCYTE ESTERASE, URINE AUTO 3+ (NEGATIVE); MUCUS, URINE SMALL (NEGATIVE); NITRITE, URINE AUTO NEGATIVE (NEGATIVE); PROTEIN, URINE AUTO NEGATIVE (NEGATIVE); RBC, URINE AUTO 34 /HPF (0-3); SPECIFIC GRAVITY URINE AUTO 1.013 (1.002-1.035); SQUAMOUS EPITHELIAL CELL UR AU 4 /HPF (0-6); UROBILINOGEN, URINE AUTO 0.2 mg/dL (0.0-2.0); WBC, URINE AUTO 24 /HPF (0-3)
[2021-07-17 10:51] LABS: INR 0.92; PROTHROMBIN TIME 12.8 SECONDS (12.7-14.5)
[2021-07-17 10:52] LABS: PARTIAL THROMBOPLASTIN TIME 25.7 SECONDS (25.9-37.0)
[2021-07-17 10:59] LABS: HCG, SERUM QUALITATIVE NEGATIVE (NEGATIVE)
[2021-07-17 11:04] LABS: BLOOD UREA NITROGEN 18 MG/DL (7-18); CALCIUM LEVEL 9.4 MG/DL (8.5-10.1); CARBON DIOXIDE LEVEL 27 MEQ/L (21-32); CHLORIDE LEVEL 107 MEQ/L (98-107); CREATININE FOR GFR 0.86 MG/DL (0.55-1.30); GLOMERULAR FILTRATION RATE > 60.0 (>58); GLUCOSE, FASTING 108 MG/DL (70-100); POTASSIUM SERUM 4.3 MEQ/L (3.5-5.1); SODIUM LEVEL 139 MEQ/L (136-145)
--- NOTE | 2021-07-17 15:41 | REP ---
INDICATION: ENCOUNTER FOR OTHER PREPROCEDURAL EXAMINATION. COMPARISON: None. TECHNIQUE: PA and lateral FINDINGS: The superior mediastinal structures are midline. The cardiac silhouette is unremarkable in size, shape, and position. The diaphragmatic surfaces of the lungs are regular, and the costophrenic angles are clear. The pulmonary banuelos are clear. The imaged osseous structures are intact. IMPRESSION: There is no acute cardiopulmonary disease. <Electronically signed by Pancho Moss > 07/17/21 [id number]
--- NOTE | 2021-07-17 21:27 | ECGEPIP ---
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
== END ==
LOC: M RAD 08:46
PROVIDERS: ATTEND Nurse Practitioner Women's Health
DX: Z01.818 Encounter for other preprocedural examination (principal)

== ENCOUNTER 2021-07-23 15:15 | Inpatient (IN) | payer OTHER ==
[~2021-07-23] VITALS: Ht 160 cm; Wt 81.6 kg
[~2021-07-23 15:15] MED LIST changes: +TRI-TAB16 PO
[2021-08-01] VITALS (7 sets, daily range): BP systolic 124–163; BP diastolic 76–98
[2021-08-01] MEDS ORDERED: LR 1,000 ML IV ONE (06:00)
[2021-08-01] MEDS ORDERED: ceFAZolin SOD 2 GM in IV 1 EA IV ONE (06:00)
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
--- OUTSIDE RECORDS SUMMARY | 2021-08-01 09:38 | CCD ---
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 MG Oral Capsule [Flomax] 05/18/2021 12:00:00 AM EDT eCW1 ([facility])
--- OUTSIDE RECORDS SUMMARY | 2021-08-01 09:38 | CCD ---
Author Author [facility] Organization [facility] Address Unknown Phone Unavailable Care Team Providers Care Newborn Photographer Name Role Phone Karina Foster Unavailable PROBLEMS Type Condition ICD9-CM Code [id number] Code Onset Dates Condition S tatus W/U Status Risk SNOMED Code Notes Problem Essential hypertension I10 Active confirmed 10224064 Problem Mixed hyperlipidemia E78.2 Active confirmed 402496039 Problem Abnormal echocardiogram R93.1 Active confirmed 086311963 in 2013, small PFO versus secundum atrial septal defect Problem Allergic asthma, mild intermittent, uncomplicated J45.20 Active confirmed 368171617 Problem Seasonal allergic rhinitis due to other allergic trigger J30.89 Active confirmed 498381253 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 Active confirmed 05136286 Problem Renal stones N20.0 Active confirmed 5718472 7 Problem Kidney calculus N20.0 Active confirmed 9557 0007 Problem 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 Active confirmed 168287496922833 Problem PFO (patent foramen ovale) Q21.1 Active confirmed 354020310 Problem Influenza vaccination declined Z28.21 Active confir med 329146086 Problem Kidney stone N20.0 Active confirmed 0006534 7 Problem Calculus of kidney N20.0 Active confirmed 9 4390749 Problem 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 Active confirmed 682512304362995 Problem Renal artery stenosis I70.1 Active confirmed 809880150 Problem Other obesity due to excess calories E66.09 Act mary confirmed 970827152 Problem Body mass index (BMI) of 32.0-32.9 in adult Z68.32 Active confirmed 883395855 Problem Sinusitis, unspecified chronicity, unspecified location J32.9 Active confirmed 29315293 Problem Renal calculi N20.0 Active confirmed 484692 07 ALLERGIES Allergen (clinical drug ingredient) Drug/Non Drug Allergy do cumented on EMR Reaction Allergy Type Onset Date Status Sesonal runny nose, cough Non Drug Allergy A ctive ENCOUNTERS from 1975 to 2021-06-29 Encounter Location Date Provider Diagnosis [facility] [address] [phone] [place] [address] Jun, Karina Foster IMMUNIZATIONS Vaccine Route Administration Date [...] Question Answer Notes Languages spoken: Upper Sorbian Synagogue: Question Answer Notes Synagogue 33 None Drug and Alcohol Question Answer [...] Information RESULTS No Results REASON FOR VISIT AUTH MEDICAL (GENERAL) HISTORY Type Description Date Medical [...] 90 Next Appt Details Provider Name:Franca Lubin, 09:30:00 AM, [address] [facility], , [place], [address], Provider Name:Karina Foster, 2021-06-15 8 11:15:00 AM, [address], , [place], [address], Insurance Providers Payer Name Payer Address Payer Phone Insured Name Patient Relati onship to Insured Coverage Start Date Coverage End Date [facility] [employer] [facility] [address] [facility] [phone] [employer] MED[employer] [address] [facility] [address] [employer] [place]
--- OUTSIDE RECORDS SUMMARY | 2021-08-01 09:38 | CCD ---
Author Author [facility] Organization [facility] Address Unknown Phone Unavailable Care Team Providers Care Timing Adjuster Name Role Phone Franca Lubin Unavailable PROBLEMS Type Condition ICD9-CM Code EOB25-ZX Code Onset Dates Condition S tatus W/U Status Risk SNOMED Code Notes Problem Mixed hyperlipidemia E78.2 Active confirmed 064724447 Problem Calculus of left kidney N20.0 Active confirmed 83911774 Problem Allergic asthma, mild intermittent, uncomplicated J45.20 Active confirmed 670442204 Problem Essential hypertension I10 Active confirmed 64740241 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 Active confirmed 50766257 Problem Abnormal echocardiogram R93.1 Active confirmed 089858150 in 2013, small PFO versus secundum atrial septal defect Problem Kidney calculus N20.0 Active confirmed 9557 0007 Problem Seasonal allergic rhinitis due to other allergic trigger J30.89 Active confirmed 894878897 Problem Calculus of kidney N20.0 Active confirmed 9 7729261 Problem 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 Active confirmed 697429024210538 Problem PFO (patent foramen ovale) Q21.1 Active confirmed 350166163 Problem Renal calculi N20.0 Active confirmed 202819 07 Problem Renal artery stenosis I70.1 Active confirmed 463374140 Problem 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 Active confirmed 123964846693414 Problem Renal stones N20.0 Active confirmed 0374905 7 Problem Influenza vaccination declined Z28.21 Active confir med 916738193 Problem Other obesity due to excess calories E66.09 Act mary confirmed 462460156 Problem Body mass index (BMI) of 32.0-32.9 in adult Z68.32 Active confirmed 732953199 Problem Sinusitis, unspecified chronicity, unspecified location J32.9 Active confirmed 44454130 ALLERGIES Allergen (clinical drug ingredient) Drug/Non Drug Allergy do cumented on EMR Reaction Allergy Type Onset Date Status Sesonal runny nose, cough Non Drug Allergy A ctive ENCOUNTERS from 1975 to 2021-07-02 Encounter [facility] [address] [facility] [phone] [place] [address] 15 Jun, 2021 Franca Lubin IMMUNIZATIONS Vaccine Route Administration Date [...] Education Language: Question Answer Notes Languages spoken: Italian Gnosticist: Question Answer Notes Gnosticist 33 None Drug and Alcohol Question Answer [...] Information RESULTS No Results REASON FOR VISIT [facility] prior auth MEDICAL (GENERAL) HISTORY Type Description Date Medical [...] Insured Coverage Start Date Coverage End Date [facility] COMMUN[employer] [address] [facility] [phone] [employer] [address] [facility] [id number] [phone] [employer] self ALLSTATE INS [employer] NO FAULT [address] [facility] [id number] [phone] [employer]
[2021-08-01] MEDS ORDERED: MIDAZOLAM INJ 2MG/2ML VIAL (J2250 PER 1MG) As Ordered ONE (09:56)
[2021-08-01] MEDS ORDERED: fentaNYL 250 MCG/5 ML INJECTION (J3010) As Ordered ONE (09:56)
[2021-08-01] MEDS ORDERED: ONDANSETRON 4MG/2ML VIAL As Ordered ONE (09:56)
[2021-08-01] MEDS ORDERED: ROCURONIUM BROMIDE 50 MG/5 ML VIAL As Ordered ONE ×2 (09:57→12:55)
[2021-08-01] MEDS ORDERED: dexameTHASONE 4 MG/ML 1ML VIAL (J1100 PER 1MG) As Ordered ONE (09:57)
[2021-08-01] MEDS ORDERED: SUGAMMADEX SODIUM 500 MG/5 ML VIAL (BRIDION) As Ordered ONE (09:57)
[2021-08-01] MEDS ORDERED: propofoL 200 MG/20 ML VIAL As Ordered ONE (09:57)
[2021-08-01] MEDS ORDERED: LIDOCAINE 2% 100MG/5ML SDV (FOR ANES.) As Ordered ONE (09:57)
[2021-08-01] MEDS ORDERED: CONRAY-60 60% 50ML VIAL (Q9961) As Ordered ONE (10:43)
[2021-08-01] MEDS ORDERED: MONTELUKAST 10 MG TAB PO PRN (11:15)
[2021-08-01] MEDS ORDERED: ONDANSETRON 4MG/2ML VIAL IV PRN ×2 (11:15→15:20)
[2021-08-01] MEDS ORDERED: ACETAMINOPHEN TAB 650MG DOSE (2X325MG) PO PRN (11:15)
[2021-08-01] MEDS ORDERED: PERCOCET 5MG/325MG TAB PO PRN ×2 (11:15→15:20)
[2021-08-01] MEDS ORDERED: CETIRIZINE (ZyrTEC) 10 MG TAB PO PRN (11:15)
[2021-08-01] MEDS ORDERED: NS 1,000 ML IV SCH (11:15)
[2021-08-01] MEDS ORDERED: ESMOLOL INJ 100MG/10ML VIAL As Ordered ONE (11:28)
[2021-08-01] MEDS ORDERED: ACETAMINOPHEN 1000MG 100ML IV BTL (OFIRMEV) (J0131 PER 10MG) As Ordered ONE (11:49)
[2021-08-01] MEDS ORDERED: PHENYLephrine 500MCG 5ML (100MCG/ML) SYRINGE As Ordered ONE (13:00)
[2021-08-01] MEDS ORDERED: ePHEDrine SULFATE 25 MG/5 ML(5MG/ML) SYRINGE As Ordered ONE (13:00)
[2021-08-01] MEDS ORDERED: LR 1,000 ML IV SCH (14:35)
--- NOTE | 2021-08-01 14:39 | ROOPDOC ---
[facility] Report Of Operation Report of Operation DATE OF PROCEDURE: 08/01/21 PREPROCEDURE DIAGNOSIS: Left kidney stone. POSTPROCEDURE DIAGNOSIS: Left kidney stone. PROCEDURE: Left percutaneous nephrolithotomy, left antegrade nephrostogram with intraoperative interpretation of images, left nephroscopy with basket extraction of stones, left ureteral stent placement. SURGEON: Dr. Nader Hayes MAINTENANCE MECHANIC HELPER: None ANESTHESIA: General. OPERATIVE INDICATIONS: This is a 45 year-old female who was found to have a 3.5cm left staghorn stone. It was recommended that she undergo a percutaneous nephrolithotomy for treatment. DESCRIPTION OF PROCEDURE: The patient was brought to the operating room, and general anesthesia was induced. Prophylactic antibiotics were infused. A Guillaume catheter was placed into the bladder under sterile conditions. The patient was then repositioned in the prone position in preparation for a left-sided percutaneous nephrolithotomy. The patient was then prepped and draped in the usual sterile fashion. At this point, the previously-placed left nephroureteral catheter was utilized to advance a Amplatz Super Stiff wire down the left collecting system and into the bladder. The nephroureteral catheter was then removed, leaving the wire in place. Next, a 2-3 cm transverse incision was made adjacent to the wire. A dual-lumen ureteral catheter was then advanced down into the left renal pelvis. The staghorn stone was easily seen on fluoroscopy. An antegrade nephrostogram was performed and was negative for extravasation. A Motion guidewire was then advanced down the left collecting system and into the bladder. The dual-lumen ureteral catheter was then removed, leaving both wires in place. The Motion wire was then secured to the drape to serve as a safety wire. Next, over the Super Stiff wire, a balloon dilator was advanced into the left kidney. The balloon was then inflated and left in place for a few seconds. Next, an access sheath was advanced over the balloon into the left renal pelvis. The balloon was then let down and removed, leaving the access sheath and the wire in place. At this point, a nephroscope was introduced into the left kidney. We were able to identify the staghorn stone. The stone was then fragmented into several pieces and suctioned out using the ShockPulse. I then traded out the nephroscope for a flexible cystoscope. This was used to get a better look at the upper pole calyces. There were a few large stones in the upper calyces. These were removed with a basket. I then examined the remaining calyces as well as the proximal left ureter and only tiny stone fragments were seen. The cystoscope was then removed, and a #7-Sao Tomean x 22-32 cm double J ureteral stent was advanced down into the left collecting system over the wire. The Super Stiff wire was then removed, and there were adequate curls of the stent in the left kidney and in the bladder. At this point, the access sheath was removed, and the Motion wire was utilized to advance a #18-[place]an [place] tip catheter down into the left collecting system. After the tip was within the renal pelvis, the balloon was inflated with about 3 mL of contrast. The [place] tip catheter was also utilized to shoot an antegrade nephrostogram, and this was negative for extravasation. We then secured the [place] tip catheter to the skin with a #2-0 silk suture. This was then connected to gravity drainage and this marked the conclusion of the procedure. The patient was placed back in the supine position, awakened from anesthesia, and transported to the recovery room in stable condition. ESTIMATED BLOOD LOSS: approximately 100 mL COMPLICATIONS: None. SPECIMENS: Left kidney stone fragments. PLAN: The patient will be admitted to the hospital postoperatively. I will likely remove her left nephrostomy catheter tomorrow. She will be discharged home tomorrow with the plan to leave her stent in place for approximately 3-4 weeks. NADER HAYES MD Aug 01, 2021 11:27
--- NOTE | 2021-08-01 14:43 | REP ---
INDICATION: NEPHROLITHIASIS. COMPARISON: None. TECHNIQUE: Intraoperative fluoroscopic imaging using portable C-arm technique. FINDINGS: Images demonstrate mild right hydronephrosis with right ureteral stent in satisfactory position along with suspected placement for percutaneous nephrostomy extending into the renal pelvis. Total fluoroscopic time 74.2 seconds. IMPRESSION: Right percutaneous nephrostomy and ureteral stent. <Electronically signed by Charlie Reddy > 08/01/21 [id number]
[2021-08-01 15:13] LABS: HEMATOCRIT 38.1 % (36.0-47.0); MEAN CORPUSCULAR HEMOGLOBIN 32.8 pg (27.0-33.0); MEAN CORPUSCULAR HGB CONC 34.1 g/dl (32.0-36.5); MEAN CORPUSCULAR VOLUME 96.2 fl (80.0-96.0); PLATELET COUNT, AUTOMATED 226 10^3/uL (150-450); RED BLOOD COUNT 3.96 10^6/uL (4.00-5.40); WHITE BLOOD COUNT 13.8 10^3/uL (4.0-10.0)
[2021-08-01] MEDS: fentaNYL 100 MCG/2 ML INJECTION (J3010) IV PRN ×2 (15:19→15:44)
[2021-08-01 15:35] LABS: BLOOD UREA NITROGEN 19 MG/DL (7-18); CALCIUM LEVEL 7.6 MG/DL (8.5-10.1); CARBON DIOXIDE LEVEL 25 MEQ/L (21-32); CHLORIDE LEVEL 112 MEQ/L (98-107); CREATININE FOR GFR 0.83 MG/DL (0.55-1.30); GLOMERULAR FILTRATION RATE > 60.0 (>58); GLUCOSE, FASTING 143 MG/DL (70-100); POTASSIUM SERUM 3.7 MEQ/L (3.5-5.1); SODIUM LEVEL 142 MEQ/L (136-145)
[2021-08-01] MEDS: PERCOCET 5MG/325MG TAB PO PRN (17:53)
[2021-08-01] MEDS: ceFAZolin SOD 1 GM in D5W MINI-BAG PLUS 50 ML IV SCH (20:24)
[2021-08-01] MEDS: DOCUSATE SODIUM 100MG CAPSULE PO SCH (20:25)
[2021-08-02 02:00] VITALS: BP 129/84
[2021-08-02] MEDS: ceFAZolin SOD 1 GM in D5W MINI-BAG PLUS 50 ML IV SCH (02:28)
[2021-08-02] MEDS: PERCOCET 5MG/325MG TAB PO PRN ×3 (02:31→12:59)
[2021-08-02 06:00] VITALS: BP 138/93
[2021-08-02 06:12] LABS: HEMATOCRIT 31.5 % (36.0-47.0); MEAN CORPUSCULAR HEMOGLOBIN 32.1 pg (27.0-33.0); MEAN CORPUSCULAR HGB CONC 34.3 g/dl (32.0-36.5); MEAN CORPUSCULAR VOLUME 93.8 fl (80.0-96.0); PLATELET COUNT, AUTOMATED 228 10^3/uL (150-450); RED BLOOD COUNT 3.36 10^6/uL (4.00-5.40); WHITE BLOOD COUNT 10.7 10^3/uL (4.0-10.0)
[2021-08-02 06:16] LABS: HEMOGLOBIN 10.8 g/dl (12.0-15.5)
[2021-08-02 06:38] LABS: BLOOD UREA NITROGEN 15 MG/DL (7-18); CALCIUM LEVEL 8.6 MG/DL (8.5-10.1); CARBON DIOXIDE LEVEL 27 MEQ/L (21-32); CHLORIDE LEVEL 105 MEQ/L (98-107); CREATININE FOR GFR 0.78 MG/DL (0.55-1.30); GLOMERULAR FILTRATION RATE > 60.0 (>58); GLUCOSE, FASTING 116 MG/DL (70-100); POTASSIUM SERUM 3.9 MEQ/L (3.5-5.1); SODIUM LEVEL 139 MEQ/L (136-145)
--- NOTE | 2021-08-02 07:53 | IPNPDOC ---
Subjective Review oF Systems Chief Complaint The patient is a 45-year-old female admitted with a reason for visit of Nephrolithiasis. Events since Last Encounter No acute events o/n. Having some L flank pain. No n/v. No f/c/ns. Objective Physical Examination General Exam: Alert, Cooperative, No Acute Distress ABDOMEN EXAM: Soft Skin Exam: Nl turgor and temperature Neuro Exam: Normal Speech Psych Exam: Mental status NL, Mood NL Other physical findings Guillaume catheter w/ pink urine draining; L neph catheter w/ very minimal output in the tubing Vital Signs/I&O Vital Signs Date Time Temp Pulse Resp B/P (MAP) Pulse Ox O2 Delivery O2 Flow Rate FiO2 08/02/21 06:00 97.7 92 18 138/93 (108) 90 Room Air 08/01/21 14:15 10 I&O- Last 24 Hours up to 6 AM 08/02/21 06:00 Intake Total 2220 ml Output Total 1400 ml Balance 820 ml Laboratory Data Labs 24H Laboratory Tests 2 08/01/21 13:15: 08/01/21 15:00: Nucleated Red Blood Cells % (auto) 0.0, Anion Gap 5L, Glomerular Filtration Rate > 60.0, Calcium Level 7.6L 08/02/21 05:57: Nucleated Red Blood Cells % (auto) 0.0, Anion Gap 7L, Glomerular Filtration Rate > 60.0, Calcium Level 8.6 CBC/BMP Laboratory Tests 08/01/21 15:00 08/02/21 05:57 Assessment/Plan Date Seen The patient was seen on 08/02/21. Patient Summary This is a 45 y/o F POD1 s/p L PCNL. Hb 10.8. Cr 0.8. Good UOP via Guillaume catheter. I removed her L nephrostomy catheter this morning. Plan/VTE VTE Prophylaxis Ordered?: Yes VTE Exclusion Mechanical Proph: N/A:VTE Prophy Ordered Plan - d/c Guillaume catheter later this morning - d/c IVF - percocet prn pain - strict I/Os - SCDs when in bed - ambulate - advance diet as tolerated - likely discharge home later today if pain is controlled NADER HAYES MD Aug 02, 2021 07:53
[2021-08-02 07:58] VITALS: BP 138/93
[2021-08-02] MEDS: DOCUSATE SODIUM 100MG CAPSULE PO SCH (07:58)
[2021-08-02] MEDS ORDERED: lisinopriL 40 MG TAB PO SCH (09:00)
[2021-08-02] MEDS ORDERED: METOPROLOL SUCC *XL* 25MG TAB (TopROL *XL*) PO SCH (09:00)
[2021-08-02] MEDS ORDERED: INFLUENZA QUADRIVALENT PF VACCINE 0.5ML SYRINGE IM ONE (09:00)
[2021-08-02 10:00] VITALS: BP 143/79
[2021-08-02 14:00] VITALS: BP 147/92
[2021-08-02] MEDS ORDERED: PERCOCET PO (14:15)
[2021-08-02] MEDS ORDERED: COLA100C5 PO (14:15)
--- NOTE | 2021-08-03 09:58 | DSES ---
DISCHARGE SUMMARY DATE OF ADMISSION: 08/01/2021 DATE OF DISCHARGE: 08/02/2021 ADMISSION DIAGNOSIS: Left staghorn stone. DISCHARGE DIAGNOSIS: Left staghorn stone. ADMITTING PHYSICIAN: Rubén Mckinney M.D. DISCHARGING PHYSICIAN: Rubén Mckinney M.D. PROCEDURES PERFORMED: A left percutaneous nephrolithotomy on 08/01/2021. HISTORY OF PRESENT ILLNESS: This is a 45-year-old female with a large left-sided staghorn stone, who underwent the above procedure on August 01, 2021. She was admitted to the hospital postoperatively. HOSPITALIZATION COURSE: The patient was admitted to the hospital after undergoing the above listed procedure. Her postoperative course was unremarkable. On postoperative day #1, her labs were within acceptable limits. Specifically her hemoglobin level was 10.8 and her serum creatinine was 0.78. She had good urine output through her Guillaume catheter. Her left nephrostomy catheter was removed the morning of postoperative day #1. Subsequently her Guillaume catheter was removed and she voided without any difficulty. She started ambulating and did so without difficulty. She tolerated a clear liquid diet. Her pain was well controlled with oral pain medication. By the afternoon of postoperative day #1, she was deemed ready for discharge home. She was discharged home with a plan for her to follow-up in the urology clinic in approximately 3-4 weeks for stent removal.
[2021-08-07 23:07] LABS: Ca Ox Monohydrate 10 % (.); Size 9x7 mm (.); Uric Acid 90 % (.)
== END 2021-08-02 16:42 | disposition home or self-care (01) | DRG 443 ==
LOC: M OR 08-01 09:31 → M MSPAV 08-01 17:47
PROVIDERS: ADMIT Urology; ATTEND Urology
PROC: 0T773DZ Dilation of Left Ureter with Intraluminal Device, Percutaneous Approach (ICD-10-PCS; 2021-08-01)
PROC: 0TC13ZZ Extirpation of Matter from Left Kidney, Percutaneous Approach (ICD-10-PCS; principal; 2021-08-01 10:55)
DX: N20.0 Calculus of kidney (principal)

== ENCOUNTER → 2021-07-27 | Outpatient (CLI) | payer OTHER | LOC: M LABSMTC 11:12 | PROVIDERS: ATTEND Anesthesiology | DX: Z01.818 Encounter for other preprocedural examination (principal); Z11.52 Encounter for screening for COVID-19 ==

== ENCOUNTER → 2021-07-30 | Outpatient (CLI) | payer OTHER ==
[~2021-07-30] MED LIST changes: +COLA100C5 PO; +ISOVUE-300 61% 50ML VIAL As Ordered ONE; +LIDOCAINE 1% MDV 20ML VIAL As Ordered ONE; +MIDAZOLAM INJ 2MG/2ML VIAL (J2250 PER 1MG) As Ordered ONE; +NS 1,000 ML IV SCH; +PERCOCET PO; +PROMETHAZINE INJ 25 MG/ML VIAL (J2550) As Ordered ONE; +ceFAZolin 2 GM/D5W 50 ML IV BAG (J0690 PER 500MG) As Ordered ONE; +ceFAZolin SOD 2 GM in D5W MINI-BAG PLUS 50 ML IV ONE; +ceFAZolin SOD 2 GM in IV 1 EA IV ONE; +diphenhydrAMINE 50MG/ML VIAL (J1200) As Ordered ONE; +fentaNYL 100 MCG/2 ML INJECTION (J3010) As Ordered ONE
--- NOTE | 2021-07-30 13:22 | IRHP ---
[facility] IR Pre-Procedure H & P General Date of Service: Jul 30, 2021 Procedure: Same Day Surgery Interval History and Physical I have seen the patient and reviewed last H & P performed within 30 days. There is no significant interval change. History of Present Illness Chief Complaint The patient is a 45-year-old female admitted with a reason for visit of Kidney Stone. PRE-PROCEDURE DIAGNOSIS: Left kidney stone HEART: Normal rate. LUNGS: Normal breathing at rest. ASA Classification ASA Classification: II-Mild systemic disease Mallampati Score: II NPO: Yes Problems with prior sedation: No Obstructive Sleep Apnea: No Plan moderate sedation Allergies Coded Allergies: No Known Drug Allergies (Verified Allergy, Unknown, 07/20/21) Home Medications Scheduled Amlodipine Besylate (Amlodipine Besylate), 10 MG PO DAILY, (Reported) Aspirin (Aspir 81), 81 MG PO DAILY, (Reported) Lisinopril (Lisinopril), 40 MG PO DAILY, (Reported) Metoprolol Succinate (Metoprolol Succinate), 25 MG PO DAILY, (Reported) Norgestimate-Ethinyl Estradiol (Tri-Linyah Tablet), 1 TAB PO DAILY, (Reported) Scheduled PRN Cetirizine HCl (Cetirizine HCl), 10 MG PO PRN PRN for CONGESTION, (Reported) Montelukast Sodium (Montelukast Sodium), 10 MG PO PRN PRN for COUGH, (Reported) VS, I&O, 24H, Fishbone Vital Signs/I&O Vital Signs Date Time Temp Pulse Resp B/P (MAP) Pulse Ox O2 Delivery O2 Flow Rate FiO2 07/30/21 13:05 108 17 100 Nasal Cannula 2.0 GAURAV LONG MD Jul 30, 2021 13:22
[2021-07-30 15:00] VITALS: BP 117/72
--- NOTE | 2021-08-02 16:01 | IRPON ---
IR Postoperative Note Date Of Procedure: Jul 30, 2021 Time Of Procedure: 16:00 IR Postoperative Note Percutaneous nephroureteral catheter placement using fluoroscopic and ultrasound guidance. Nephrostogram and Ureterogram Ultrasound of the left kidney. Clinical Information:Left kidney staghorn calculus. Needs antegrade PCNL access. Physician: Dr. Lucas. Procedure: The patient was advised of the benefits, risks, and alternatives of the procedure and informed consent was obtained. A time out was performed with verification of the patient's name, MRN, site of procedure, and type of procedure to be performed. The patient was positioned in the prone position on the angiographic table. The site was prepped and draped in the usual sterile fashion. Moderate sedation was performed by the physician including the presence of an independent trained RN who assisted in monitoring the patient's level of consciousness and physiological status. Following the administration of fentanyl and Versed, the physician spent 60 minutes of continuous [id number] time with the patient. Ultrasound of the left kidney demonstrates no significant hydronephrosis. A ornamenter radiograph reveals left kidney staghorn calculus. The anticipated puncture site on the flank was anesthetized with lidocaine. Using ultrasound and fluoroscopy guidance, the lower pole calyx with radiopaque stone was accessed with a 21-gauge Chiba needle. A nephrostogram was performed which demonstrates some blunting of the calyces. A Haskell wire was then advanced into the collecting system, under fluoroscopy guidance, and manipulated around the stone and down into the ureter. The needle was exchanged over the wire for a nonvascular access sheath. Injection of contrast confirmed location in the ureter. An Amplatz wire was then advanced into the ureter, down the ureter and into the bladder, under fluoroscopy guidance. The sheath was removed over the wire. A 6 Faroese Se[place]mon Catheter was then advanced under fluoroscopy guidance, over the wire, through the renal collecting system, down the ureter and into the bladder. The distal pigtail was formed. A final nephrostogram and ureterogram were performed confirming positioning of the catheter in the renal collecting system, ureter and bladder. No ureteral extravasation. The catheter was sutured in position with 2-0 Prolene and a sterile dressing applied. The patient tolerated the procedure well and was returned to the PRU in stable condition. EBL: < 5 mL. Complications:None. Conclusion: 1. Nephrostogram and Ureterogram demonstratelarge staghorn calculus in the left kidney with blunting of the calyces. Ureter is patent to the bladder. 2. Successful left sided antegrade nephroureteral access for PCNL. Patient to follow-up on Friday for PCNL. Thank you for this referral. CC GAURAV Wilhelm MD Aug 02, 2021 16:01
== END ==
LOC: M IRPRO 11:29
PROVIDERS: ATTEND Radiology Diagnostic Radiology
DX: N20.0 Calculus of kidney (principal); Z79.3 Long term (current) use of hormonal contraceptives; Z79.82 Long term (current) use of aspirin; Z79.899 Other long term (current) drug therapy
CPT/HCPCS: 50433; 99152; 99153; C1758; C1769; C1894; J0690; J1200; J2250; J3010; Q9967

== ENCOUNTER → 2021-08-14 | Outpatient (POV) | payer OTHER ==
[~2021-08-14] VITALS: Ht 162.6 cm; Wt 80.4 kg
[~2021-08-14] MED LIST changes: -ISOVUE-300 61% 50ML VIAL As Ordered ONE; -LIDOCAINE 1% MDV 20ML VIAL As Ordered ONE; -MIDAZOLAM INJ 2MG/2ML VIAL (J2250 PER 1MG) As Ordered ONE; -MONT10TA10 PO; +MONT10TA97 PO; -NS 1,000 ML IV SCH; -PROMETHAZINE INJ 25 MG/ML VIAL (J2550) As Ordered ONE; -ceFAZolin 2 GM/D5W 50 ML IV BAG (J0690 PER 500MG) As Ordered ONE; -ceFAZolin SOD 2 GM in D5W MINI-BAG PLUS 50 ML IV ONE; -ceFAZolin SOD 2 GM in IV 1 EA IV ONE; -diphenhydrAMINE 50MG/ML VIAL (J1200) As Ordered ONE; -fentaNYL 100 MCG/2 ML INJECTION (J3010) As Ordered ONE
[2021-08-14 08:05] VITALS: BP 135/83
== END ==
LOC: M IRPOV 07:56
PROVIDERS: ATTEND Radiology Diagnostic Radiology
DX: Z48.816 Encounter for surgical aftercare following surgery on the genitourinary system (principal)

== ENCOUNTER → 2024-03-16 | Outpatient (REF) | payer BC, MEDICAID ==
[2024-03-16 17:53] LABS: ALBUMIN 3.9 G/DL (3.2-5.2); ALKALINE PHOSPHATASE 64 U/L (46-116); ALT/SGPT 13 U/L (7.0-40); AST/SGOT < 8 U/L (<34); BILIRUBIN,TOTAL 0.7 MG/DL (0.3-1.2); BLOOD UREA NITROGEN 21 MG/DL (9-23); CALCIUM LEVEL 9.7 MG/DL (8.5-10.1); CARBON DIOXIDE LEVEL 28 MMOL/L (20-31); CHLORIDE LEVEL 103 MMOL/L (98-107); CHOLESTEROL LEVEL 201 MG/DL (<200); CHOLESTEROL RISK RATIO 5.27 (<5); CREATININE FOR GFR 0.75 MG/DL (0.55-1.30); GLOMERULAR FILTRATION RATE > 60.0 (>58); GLUCOSE, FASTING 105 MG/DL (60-100); HDL CHOLESTEROL 38.1 MG/DL (>40); LDL CHOLESTEROL 108.3 MG/DL (<100); NON-HDL-C 162.9 MG/DL; POTASSIUM SERUM 4.4 MMOL/L (3.5-5.1); SODIUM LEVEL 138 MMOL/L (136-145); TOTAL PROTEIN 7.4 G/DL (5.7-8.2); TRIGLYCERIDES LEVEL 273 MG/DL (<150)
[2024-03-16 17:55] LABS: THYROID STIMULATING HORMONE 1.077 uIU/ML (0.55-4.78)
[2024-03-16 17:56] LABS: FREE T4 1.14 NG/DL (0.89-1.76)
== END ==
LOC: M LAB REF 17:07
PROVIDERS: ATTEND Physician Assistant
DX: E66.09 Other obesity due to excess calories (principal); Z68.32 Body mass index [BMI] 32.0-32.9, adult; E78.2 Mixed hyperlipidemia; I10 Essential (primary) hypertension

== ENCOUNTER → 2024-04-07 | Outpatient (REF) | payer BC, MEDICAID, OTHER | LOC: M LAB REF 16:44 | PROVIDERS: ATTEND Physician Assistant | DX: J02.9 Acute pharyngitis, unspecified (principal) ==

== ENCOUNTER → 2024-11-01 | Outpatient (CLI) | payer OTHER | LOC: M RAD 07:39 | PROVIDERS: ATTEND Nurse Practitioner Family | DX: I15.0 Renovascular hypertension (principal); I70.1 Atherosclerosis of renal artery ==